=== PATIENT | female | born 1965 | race Caucasian/White ===

== ENCOUNTER → 2016-06-26 | Outpatient (CLI) | payer OTHER ==
--- NOTE | 2016-06-26 15:24 | MR ---
EXAMINATION TYPE: MR shoulder RT wo con DATE OF EXAM: 06/26/2016 3:14 PM COMPARISON: NONE HISTORY: Right shoulder pain TECHNIQUE: Multiplanar, multisequence imaging of the right shoulder is performed without contrast. FINDINGS: Rotator Cuff: There is increased signal involving the distal margin of the supraspinatus tendon. At t he insertion there is a 2 mm partial through thickness tear with no retraction. This involves the ant erior fibers. Small amount of fluid seen in the subacromial subdeltoid space. Does appear to be increased signal involving the distal margin of the infraspinatus tendon most sugge stive of tendinosis with no through thickness tear or retraction. Acromioclavicular Joint: Hypertrophic change of the AC joint results in impingement. Glenohumeral Joint: Joint space appears be fairly well preserved. No sizable joint effusion. Inferior glenohumeral ligament intact. Labrum: The labrum appears grossly intact given limitation of non-arthrogram study. Biceps Tendon: The long head of biceps is in normal location within bicipital groove. Small amount of fluid is seen surrounding the biceps tendon. Bone marrow signal: No focal abnormal marrow signal is appreciated. Small benign-appearing cyst invol ving the humeral head. IMPRESSION: 1. Supraspinatus tendinosis with a 2 mm partial through thickness tear involving the anterior fibers near the insertion with no retraction. # 2. Bicipital mild tendinosis. 3. Tendinosis distal margin infraspinatus tendon with no through thickness tear or retraction.
== END | disposition home or self-care (01) ==
LOC: RADMRIMAIN 14:34
PROVIDERS: ATTEND Psychiatry & Neurology Neurology
DX: M75.111 Incomplete rotator cuff tear or rupture of right shoulder, not specified as traumatic (principal); M67.813 Other specified disorders of tendon, right shoulder

== ENCOUNTER → 2018-03-10 | Outpatient (CLI) | payer OTHER ==
--- NOTE | 2018-03-10 18:27 | XR ---
EXAMINATION TYPE: XR chest 2V DATE OF EXAM: 03/10/2018 COMPARISON: None HISTORY: 52-year-old female with cough TECHNIQUE: Frontal and lateral views FINDINGS: The cardiomediastinal silhouette, aorta, and pulmonary vasculature are within normal limits. Some str pantera atelectasis in the mid and lower lungs. There is partial silhouetting of the right hemidiaphragm on the lateral view. Otherwise, no pleural effusion. IMPRESSION: Partial silhouetting of the posterior right hemidiaphragm on the lateral view could represent adjacen t right basilar atelectasis or early developing infiltrate. Clinically correlate.
--- NOTE | 2018-03-11 07:09 | CT ---
EXAMINATION TYPE: CT brain w con DATE OF EXAM: 03/10/2018 COMPARISON: None HISTORY: 52-year-old female cervicalgia, headache CT DLP: 1121 mGycm Automated exposure control for dose reduction was used. Technique: CT scan of the head is performed with IV Contrast, patient injected with 100 mL of Isovue 300. FINDINGS: There is no abnormal enhancing mass or midline shift identified. Dural venous sinuses are patent. Th e ventricles and sulci are within normal limits in size. Craniocervical junction appears within norm al limits. The globes are intact and the visualized sinuses are clear. IMPRESSION: No intracranial abnormality identified on contrast enhanced CT of the head.
== END | disposition home or self-care (01) ==
LOC: RADCTMAIN 14:27
PROVIDERS: ATTEND Psychiatry & Neurology Neurology
DX: R51 Headache (principal); R05 Cough; R06.00 Dyspnea, unspecified
CPT/HCPCS: 71046; 70460; Q9967

== ENCOUNTER → 2018-04-02 | Outpatient (CLI) | payer OTHER ==
--- NOTE | 2018-04-02 17:39 | CT ---
EXAMINATION TYPE: CT chest w con DATE OF EXAM: 04/02/2018 COMPARISON: Chest x-ray 03/10/2018 HISTORY: abnormal CXR CT DLP: 234.40 mGycm, Automated exposure control for dose reduction was used. CONTRAST: Performed injected with 100 mL of Isovue 300. TECHNIQUE: Axial images were obtained at 5 mm thick sections. Reconstructed images are reviewed on wishkicker computer in the coronal plane. FINDINGS: Portion of the thyroid visualized is normal. No suspicious lung nodules or focal infiltrates are present. Suspected posterior atelectasis has reso lved from the chest x-ray. Scattered blebs and bulla at the lung apices are present bilaterally yo tible COPD. No enlarged mediastinal or hilar adenopathy is evident. The ascending aorta diameter at the level o f the main pulmonary artery is 3.1 cm. The main pulmonary artery diameter at the bifurcation is 2.[address] sections are obtained through the upper abdomen. Abdomen is essentially unremarkable. IMPRESSIONS: 1. No acute pulmonary process. 2. Emphysematous blebs and bulla at the lung apices.
== END ==
LOC: RADCTMAIN 14:13
PROVIDERS: ATTEND Internal Medicine
DX: J43.9 Emphysema, unspecified (principal); Z88.0 Allergy status to penicillin
CPT/HCPCS: 71260; Q9967

== ENCOUNTER → 2018-07-05 | Outpatient (CLI) | payer OTHER ==
--- NOTE | 2018-07-05 20:37 | XR ---
EXAMINATION TYPE: XR shoulder limited 2 views LT, XR elbow limited 2 views LT DATE OF EXAM: 07/05/2018 COMPARISON: NONE HISTORY: 52-year-old female left elbow and shoulder pain and swelling FINDINGS: Left shoulder: Moderate degenerative joint space narrowing and marginal spurring at the AC joint. Subacromial space is preserved. No tendinous or bursal calcifications. No acute fracture, subluxation, or dislocation s een. Left elbow: There is asymmetric joint space narrowing along the medial aspect of the ulnar trochlear joint. Small bony spur at the medial condyle. There is an underlying elbow joint effusion. No acute fracture, sub luxation, or dislocation is seen. IMPRESSION: 1. Left shoulder: Moderate AC joint OA. No acute osseous abnormality seen. 2. Left elbow: Underlying elbow joint effusion. Findings could be reactive to the patient's ulnotroch lear joint OA or effusion could be secondary to an underlying occult injury. Further clinical correla tion recommended. Follow-up in 10-14 days to reassess.
== END | disposition home or self-care (01) ==
LOC: RADXRMAIN 10:03
PROVIDERS: ATTEND Internal Medicine
DX: M19.012 Primary osteoarthritis, left shoulder (principal); M25.422 Effusion, left elbow

== ENCOUNTER → 2018-11-17 | Outpatient (CLI) | payer OTHER ==
--- NOTE | 2018-11-17 17:55 | CT ---
EXAMINATION TYPE: CT soft tissue neck wo con DATE OF EXAM: 11/17/2018 COMPARISON: None HISTORY: Laryngeal polyps CT DLP: 331.8 mGycm CONTRAST: Patient injected with 0 mL of Isovue 300. TECHNIQUE: Axial images at 3 mm thick sections. Reconstructed images in the coronal plane and sagitt al plane are reviewed. FINDINGS: Limited CT sections are obtained the lung apices. The lung apices appear clear. There is a 1.0 cm lymph node in the precarinal space. The ascending thoracic aorta at the level of the main pul monary artery is 3.1 cm. The main pulmonary artery dictation is 2.4 cm. Portion of the thyroid visualized is normal. The subglottic airway is normal. Vocal cord level is sym metrical. Hypopharynx is unremarkable. No supraclavicular adenopathy is evident. Vascular structures appear unremarkable. Submandibular glan ds are normal. Small submandibular lymph nodes are present. Multiple anterior and posterior triangle lymph nodes are present. Enlarged lymphadenopathy is not evident. The prevertebral space is normal. P arapharyngeal spaces are normal. CT neck: The torus tubarius and fossa of Rosenmuller are normal. Woods Boss spaces are normal. Para nasal sinuses and mastoid air cells are clear. Parotid glands appear normal and symmetrical. Submandibular glands, are normal. No suspicious adenop athy is evident. Osseous structures are normal. IMPRESSIONS: 1. No suspicious discrete mass identified. Patient's reported vocal cord polyp is not identified.
--- NOTE | 2018-11-17 19:34 | US ---
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 Abnormal thyroid labs. TECHNIQUE: Multiple sonographic images of the thyroid gland are obtained. FINDINGS: GLAND SIZE: Right Lobe: 3.7 x 1.7 x 1.9 cm Overall Parenchyma: heterogenous Left Lobe: 3.9 x 1.7 x 1.4 cm Overall Parenchyma: heterogeneous Isthmus Thickness: 0.4 cm NODULES RIGHT: # of nodules measured on right: 0 LEFT: # of nodules measured on left: 0 ISTHMUS: # of nodules measured in the isthmus: 0 Bilateral neck scanned, no evidence of lymphadenopathy. IMPRESSION: Overall normal sized gland with heterogeneous parenchyma, possible chronic thyroiditis, hypothyroidis m, or goiter. No discrete nodules.
== END | disposition home or self-care (01) ==
LOC: RADCTMAIN 15:35
PROVIDERS: ATTEND Internal Medicine
DX: J38.1 Polyp of vocal cord and larynx (principal); R94.6 Abnormal results of thyroid function studies; Z88.0 Allergy status to penicillin
CPT/HCPCS: 70490; 76536

== ENCOUNTER → 2019-02-12 | Outpatient (CLI) | payer OTHER ==
--- NOTE | 2019-02-12 15:38 | US ---
EXAMINATION TYPE: US carotid duplex BILAT DATE OF EXAM: 02/12/2019 COMPARISON: NONE CLINICAL HISTORY: G45 Transient cerebral ischemic attacks and relate. Headaches, dizziness, TIA EXAM MEASUREMENTS: RIGHT: Peak Systolic Velocity (PSV) cm/sec ----- Right CCA: 79.1 ----- Right ICA: 81.0 ----- Right ECA: 79.1 ICA/CCA ratio: 1.0 RIGHT: End Diastole cm/sec ----- Right CCA: 27.3 ----- Right ICA: 35.6 ----- Right ECA: 17.6 LEFT: Peak Systolic Velocity (PSV) cm/sec ----- Left CCA: 82.6 ----- Left ICA: 97.6 ----- Left ECA: 72.2 ICA/CCA ratio: 1.2 LEFT: End Diastole cm/sec ----- Left CCA: 28.5 ----- Left ICA: 50.2 ----- Left ECA: 19.4 VERTEBRALS (direction of flow): Right Vertebral: Intermittent retrograde flow Left Vertebral: Antegrade Rhythm: Normal Mild plaque bilateral bifurcations. No evidence of increased velocities. Abnormal right vertebral art serafin flow IMPRESSION: 1. Mild degree of grayscale atheromatous plaquing with no sonographically evident hemodynamically sig nificant stenosis within either visualized carotid arterial system. 2. Abnormal flow within the right vertebral artery with diminutive caliber and reversal flow late in the cardiac cycle. CTA neck is recommended for further evaluation. Criteria for Assigning % of Stenosis / Diameter reduction (Estimation based on the indirect measurements of the internal carotid artery velocities (ICA PSV). 1. Normal (no stenosis)=ICA PSV < 125 cm/s: ratio < 2.0: ICA EDV<40 cm/s. 2. Less than 50% stenosis=ICA PSV < 125 cm/s: ratio < 2.0: ICA EDV<40 cm/s. 3. 50 to 69% stenosis=ICA PSV of 125 to 230 cm/s: ration 2.0 ? 4.0: ICA EDV 40-100 cm/s. 4. Greater than 70% stenosis to near occlusion= ICA PSV > 230 cm/s: ratio > 4.0: ICA EDV > 100 cm/s. 5. Near occlusion= ICA PSV velocities may be low or undetectable: variable ratio and ICA EDV. 6. Total occlusion=unable to detect flow.
== END | disposition home or self-care (01) ==
LOC: RADUSWWP 14:42
PROVIDERS: ATTEND Psychiatry & Neurology Neurology
DX: I65.23 Occlusion and stenosis of bilateral carotid arteries (principal); R93.89 Abnormal findings on diagnostic imaging of other specified body structures
CPT/HCPCS: 93880

== ENCOUNTER → 2019-04-15 | Outpatient (CLI) | payer OTHER ==
--- NOTE | 2019-04-15 12:07 | CT ---
EXAMINATION TYPE: CT angio head neck DATE OF EXAM: 04/15/2019 COMPARISON: CT brain 03/10/2018 HISTORY: 53-year-old female Dissection of vertebral artery TECHNIQUE: Contiguous axial scanning of the head and neck performed with IV Contrast, patient inject ed with 65 ml mL of Isovue 370. Coronal and sagittal MIP reconstructions were performed. 3-D reconstr uctions generated on a dedicated independent workstation. CT DLP: 284 mGycm Automated exposure control for dose reduction was used. FINDINGS: NECK: Prominent dependent atelectasis in the visualized upper lungs with underlying paraseptal emphysema. Conventional and vessel branching anatomy. There is moderate to severe focal narrowing at the proximal right subclavian artery, refer to axial i mage 97 and a diminutive right vertebral artery likely on a congenital basis. Both vertebral arteries appear patent throughout their course. Mild atherosclerotic change at the left carotid bifurcation. No significant common or internal caroti d artery stenosis on either side. HEAD: Again, dominant left vertebral artery. Both vertebral and basilar arteries are patent. Atherosclerotic calcifications within the right carotid siphon. It appears to be a moderate focal wilfrid nosis along the proximal portion of the cavernous segment of the right internal carotid artery, refer to thin slice axial image 115. Mild to moderate focal narrowing at the lacerum segment, axial image 122, and also mild stenoses scattered throughout the remainder of the right carotid siphon. Hypoplastic A1 segment right anterior cerebral artery. Anterior circulation is otherwise patent. No aneurysmal change is seen. IMPRESSION: NECK: 1. Moderate to severe focal stenosis proximal right subclavian artery (axial image 97). 2. Dominant left vertebral artery. 3. Mild atherosclerotic change at the left carotid bifurcation. No significant common or internal car otid artery stenosis within the neck. 4. Emphysematous change in the visualized upper lungs. HEAD: 1. Moderate atherosclerotic change within the right carotid siphon with segmental areas of mild steno ses throughout but with more moderate focal stenosis along the proximal portion of the cavernous segm ent and mild to moderate focal stenosis along the lacerum segment, right ICA. 2. Congenitally hypoplastic A1 segment right FAWN. 3. Again, dominant left vertebral artery. No large vessel intracranial arterial occlusion or aneurysm al change is seen.
== END | disposition home or self-care (01) ==
LOC: RADCTMAIN 08:59
PROVIDERS: ATTEND Psychiatry & Neurology Vascular Neurology
DX: I65.23 Occlusion and stenosis of bilateral carotid arteries (principal); I70.8 Atherosclerosis of other arteries; Q28.3 Other malformations of cerebral vessels; I77.74 Dissection of vertebral artery
CPT/HCPCS: 70496; 70498; Q9967

== ENCOUNTER 2020-03-08 15:06 | Inpatient (IN) | payer OTHER ==
[2020-03-08] MEDS ORDERED: PANTOPRAZOLE 40 MG/10 ML VIAL IVP STA (15:26)
[2020-03-08] MEDS ORDERED: ONDANSETRON 4 MG/2 ML VIAL IVP STA (15:26)
[2020-03-08] MEDS ORDERED: SODIUM CHLORIDE 0.9% 1,000 ML IV STA ×3 (15:26→17:27)
--- NOTE | 2020-03-08 15:35 | ED ---
GI Bleed HPI - General Chief complaint: GI Bleed Stated complaint: blood in stool Time Seen by Provider: 03/08/20 15:10 Source: patient, EMS Mode of arrival: EMS Limitations: no limitations - History of Present Illness Initial comments: This 54-year-old female presents with a complaint of possible GI bleeding. She states that the onset of symptoms was just this past evening, one day ago. She had multiple episodes of very black stools mixed with diarrhea. She denies any bright red blood per rectum. She also has been very nauseated and vomited mul tiple times stating that this was a very dark vomitus but there is no bright red blood. She also complains of severe low back pain with a history of chronic low back pain. She complains of bilateral lower abdominal cramping. She denies any fevers or chills. She states that at one time, she got up from the toilet, became very sweaty, and then passed out. She denies any injuries. She was able to make it back to the bed and laid down and her symptoms improved. She denies any previous known history of gastrointestinal bleeding. She denies any history of gastritis or peptic ulcer disease. She utilizes only very rare nonsteroidal anti-inflammatory medications. She does not drink alcohol. She presents via EMS hypotensive with a systolic blood pressure in the 70s. No other complaints or modifying factors. - Related Data Home Medications Medication Instructions Recorded Confirmed HYDROcodone/APAP 7.5-325MG [[place] 1 tab PO TID 03/08/20 03/08/20 7.5-325] Allergies Allergy/AdvReac Type Severity Reaction Status Date / Time Penicillins Allergy Nausea & Verified 03/08/20 17:35 Vomiting & Diarrhea,"passed out" Review of Systems ROS Statement: Those systems with pertinent positive or pertinent negative responses have been documented in the HPI. ROS Other: All systems not noted in ROS Statement are negative. Past Medical History Past Medical History: GERD/Reflux, Musculoskeletal Disorder Additional Past Medical History / Comment(s): "clicking and popping in neck area very painful,rt shoulder very painful" History of Any Multi-Drug Resistant Organisms: None Reported Past Surgical History: Orthopedic Surgery Additional Past Surgical History / Comment(s): lt elbow,,rt hand surgery Past Anesthesia/Blood Transfusion Reactions: Motion Sickness, Postoperative Nausea & Vomiting (PONV) Past Psychological History: No Psychological Hx Reported Smoking Status: Current some day smoker Past Alcohol Use History: Occasional Past Drug Use History: None Reported - Past Family History Father Family Medical History: Cancer Mother Additional Family Medical History / Comment(s): bone degenerating disease- multiple jt replacements General Exam - General Exam Comments Initial Comments: GENERAL: The patient is well nourished and well hydrated. VITAL SIGNS: Heart rate, blood pressure, respiratory rate reviewed as recorded in nurse's notes. EYES: Pupils are round and reactive. Extraocular movements are intact. No conjunctival / lid redness or swelling. ENT: No external evidence of injury, swelling, or ecchymosis. Airway is patent. Throat is clear. NECK: Nontender. No swelling or evidence of injury. No subcutaneous emphysema. Trachea is midline. No thyroid mass. HEART: Regular rate and rhythm. Good peripheral pulses. LUNGS/CHEST: Breath sounds clear and equal bilaterally. No rales, rhonchi, or wheezes. No ecchymosis, subcutaneous emphysema, or tenderness. ABDOMEN: Mild tenderness noted to bilateral lower abdomen. No palpable masses or organomegaly. No peritoneal signs. No abdominal wall swelling or ecchymosis. EXTREMITIES: No extremity tenderness. Normal muscle tone and function. Mild tenderness noted to the bilateral perilumbar musculature. NEUROLOGIC: Sensation is grossly intact. Cranial nerve exam reveals face is symmetrical, tongue is midline, speech is clear. SKIN: No abrasions or ecchymosis is noted. No induration or masses noted. PSYCHIATRIC: Alert and oriented. Appropriate behavior and judgment. Rectal exam: Good rectal tone noted, black stool identified. No bright red blood identified. No hemorrhoids. Limitations: no limitations Course Vital Signs 03/08/20 03/08/20 03/08/20 15:08 15:28 16:52 Temperature 98.2 F Pulse Rate 95 93 Respiratory 16 16 18 Rate Blood Pressure 97/69 118/59 85/55 O2 Sat by Pulse 100 98 99 Oximetry 03/08/20 17:53 Temperature Pulse Rate 87 Respiratory 16 Rate Blood Pressure 114/89 O2 Sat by Pulse 98 Oximetry Medical Decision Making - Medical Decision Making The patient was seen and examined. All diagnostics are reviewed. She receives Protonix 40 mg IV here and she also receives 1 L bolus of 0.9 normal saline. She receives Zofran 8 mg IV. Her blood pressure does improve with IV fluid administration. The EKG shows a normal sinus rhythm at a rate of 81. There is no acute ST-T wave changes identified. The LA interval is 162, QRS duration is 74, and the QTC intervals 453. Laboratory is reviewed and does show a hemoglobin low at 11 with previous being 14 one year ago. Her white blood cell count is elevated. Hemoccult is positive. The CO2 is decreased as well. The computed tomography scan of the abdomen and pelvis shows a 3 mm right ureteral stone with associated hydronephrosis. It also shows nephrolithiasis. There is some colonic wall thickening and possible narrowing and radiologist's's that this could be consistent with a colitis and recommends visualization/endoscopy. The patient seems symptomatically to have an upper GI bleed. She will be covered with antibiotics for the possibility of a colitis as well. She is given additional morphine for continued pain. She is given additional fluids. Her blood pressure does come up initially but then drops down to 87 systolic. The case is discussed with Dr. Tapia and he would like the patient to be admitted to the intensive care unit. Case is discussed with Dr. Blas and he is agreeable to admission to the ICU as well. GI and urology will be consulted. Approximat delmis 30 minutes critical care time is utilized and the treatment of the patient. - Lab Data Result diagrams: 03/08/20 15:31 03/08/20 15:31 Lab Results 03/08/20 03/08/20 03/08/20 Range/Units 15:10 15:20 15:31 WBC 16.2 H (3.8-10.6) k/uL RBC 3.56 L (3.80-5.40) m/uL Hgb 11.0 L (11.4-16.0) gm/dL Hct 33.1 L (34.0-46.0) % MCV 92.8 (80.0-100.0) fL MCH 30.9 (25.0-35.0) pg MCHC 33.2 (31.0-37.0) g/dL RDW 13.6 (11.5-15.5) % Plt Count 401 (150-450) k/uL MPV 7.9 Neutrophils % 61 % Lymphocytes % 31 % Monocytes % 5 % Eosinophils % 1 % Basophils % 1 % Neutrophils # 9.9 H (1.3-7.7) k/uL Lymphocytes # 5.0 H (1.0-4.8) k/uL Monocytes # 0.8 (0-1.0) k/uL Eosinophils # 0.1 (0-0.7) k/uL Basophils # 0.2 (0-0.2) k/uL PT (9.0-12.0) sec INR (<1.2) APTT (22.0-30.0) sec Sodium (137-145) mmol/L Potassium (3.5-5.1) mmol/L Chloride (98-107) mmol/L Carbon Dioxide (22-30) mmol/L Anion Gap mmol/L BUN (7-17) mg/dL Creatinine (0.52-1.04) mg/dL Est GFR (CKD-EPI)AfAm (>60 ml/min/1.73 sqM) Est GFR (CKD-EPI)NonAf (>60 ml/min/1.73 sqM) Glucose (74-99) mg/dL Plasma Lactic Acid Dorian (0.7-2.0) mmol/L Calcium (8.4-10.2) mg/dL Total Bilirubin (0.2-1.3) mg/dL AST (14-36) U/L ALT (4-34) U/L Alkaline Phosphatase (38-126) U/L Total Protein (6.3-8.2) g/dL Albumin (3.5-5.0) g/dL Lipase (23-300) U/L Stool Occult Blood (Negative) Blood Type O Positive Blood Type Confirm O Positive Blood Type Recheck No Previous Record Bld Type Recheck Status CABO Indicated Antibody Screen NEGATIVE Spec Expiration Date 03/11/2020 - 233003/08/20 03/08/20 03/08/20 Range/Units 15:31 15:31 15:31 WBC (3.8-10.6) k/uL RBC (3.80-5.40) m/uL Hgb (11.4-16.0) gm/dL Hct (34.0-46.0) % MCV (80.0-100.0) fL MCH (25.0-35.0) pg MCHC (31.0-37.0) g/dL RDW (11.5-15.5) % Plt Count (150-450) k/uL MPV Neutrophils % % Lymphocytes % % Monocytes % % Eosinophils % % Basophils % % Neutrophils # (1.3-7.7) k/uL Lymphocytes # (1.0-4.8) k/uL Monocytes # (0-1.0) k/uL Eosinophils # (0-0.7) k/uL Basophils # (0-0.2) k/uL PT 10.5 (9.0-12.0) sec INR 1.0 (<1.2) APTT 22.4 (22.0-30.0) sec Sodium 136 L (137-145) mmol/L Potassium 4.0 (3.5-5.1) mmol/L Chloride 111 H (98-107) mmol/L Carbon Dioxide 17 L (22-30) mmol/L Anion Gap 8 mmol/L BUN 52 H (7-17) mg/dL Creatinine 0.72 (0.52-1.04) mg/dL Est GFR (CKD-EPI)AfAm >90 (>60 ml/min/1.73 sqM) Est GFR (CKD-EPI)NonAf >90 (>60 ml/min/1.73 sqM) Glucose 112 H (74-99) mg/dL Plasma Lactic Acid Dorian (0.7-2.0) mmol/L Calcium 9.5 (8.4-10.2) mg/dL Total Bilirubin 0.3 (0.2-1.3) mg/dL AST 18 (14-36) U/L ALT 14 (4-34) U/L Alkaline Phosphatase 48 (38-126) U/L Total Protein 6.3 (6.3-8.2) g/dL Albumin 3.6 (3.5-5.0) g/dL Lipase 16 L (23-300) U/L Stool Occult Blood Positive H (Negative) Blood Type Blood Type Confirm Blood Type Recheck Bld Type Recheck Status Antibody Screen Spec Expiration Date 03/08/20 Range/Units 15:31 WBC (3.8-10.6) k/uL RBC (3.80-5.40) m/uL Hgb (11.4-16.0) gm/dL Hct (34.0-46.0) % MCV (80.0-100.0) fL MCH (25.0-35.0) pg MCHC (31.0-37.0) g/dL RDW (11.5-15.5) % Plt Count (150-450) k/uL MPV Neutrophils % % Lymphocytes % % Monocytes % % Eosinophils % % Basophils % % Neutrophils # (1.3-7.7) k/uL Lymphocytes # (1.0-4.8) k/uL Monocytes # (0-1.0) k/uL Eosinophils # (0-0.7) k/uL Basophils # (0-0.2) k/uL PT (9.0-12.0) sec INR (<1.2) APTT (22.0-30.0) sec Sodium (137-145) mmol/L Potassium (3.5-5.1) mmol/L Chloride (98-107) mmol/L Carbon Dioxide (22-30) mmol/L Anion Gap mmol/L BUN (7-17) mg/dL Creatinine (0.52-1.04) mg/dL Est GFR (CKD-EPI)AfAm (>60 ml/min/1.73 sqM) Est GFR (CKD-EPI)NonAf (>60 ml/min/1.73 sqM) Glucose (74-99) mg/dL Plasma Lactic Acid Dorian 1.3 (0.7-2.0) mmol/L Calcium (8.4-10.2) mg/dL Total Bilirubin (0.2-1.3) mg/dL AST (14-36) U/L ALT (4-34) U/L Alkaline Phosphatase (38-126) U/L Total Protein (6.3-8.2) g/dL Albumin (3.5-5.0) g/dL Lipase (23-300) U/L Stool Occult Blood (Negative) Blood Type Blood Type Confirm Blood Type Recheck Bld Type Recheck Status Antibody Screen Spec Expiration Date Disposition Clinical Impression: Gastrointestinal bleeding, upper, Syncope, Hypotension, Acute low back pain, Acute abdominal pain, Anemia, Leukocytosis, Ureteral stone, Acidosis, Intractable pain, Hydronephrosis, Colitis Disposition: ADMITTED IP TO THIS [facility] Condition: Fair Time of Disposition: 18:09 Decision Date: 03/08/20 Decision Time: 18:09
[2020-03-08 16:01] LABS: ALT 14 U/L (4-34); AST 18 U/L (14-36); African American GFR (CKD) >90 (>60 ml/min/1.73 sqM); Albumin 3.6 g/dL (3.5-5.0); Alkaline Phosphatase 48 U/L (38-126); Anion Gap 8 mmol/L; Blood Urea Nitrogen 52 mg/dL (7-17); Calcium 9.5 mg/dL (8.4-10.2); Carbon Dioxide 17 mmol/L (22-30); Chloride 111 mmol/L (98-107); Glucose 112 mg/dL (74-99); Lipase 16 U/L (23-300); Non-African American GFR(CKD) >90 (>60 ml/min/1.73 sqM); Sodium 136 mmol/L (137-145); Total Bilirubin 0.3 mg/dL (0.2-1.3); Total Protein 6.3 g/dL (6.3-8.2)
[2020-03-08] MEDS ORDERED: MORPHINE SULFATE 2 MG/ML SYRINGE IVP STA (16:01)
[2020-03-08 16:23] LABS: Basophils # (A) 0.2 k/uL (0-0.2); Basophils % (A) 1 %; Eosinophils # (A) 0.1 k/uL (0-0.7); Eosinophils % (A) 1 %; HCT 33.1 % (34.0-46.0); Lymphocytes % (A) 31 %; MCH 30.9 pg (25.0-35.0); MCHC 33.2 g/dL (31.0-37.0); MCV 92.8 fL (80.0-100.0); Mean Platelet Volume 7.9; Monocytes # (A) 0.8 k/uL (0-1.0); Monocytes % (A) 5 %; Neutrophils # (A) 9.9 k/uL (1.3-7.7); Neutrophils % (A) 61 %; Platelet Count 401 k/uL (150-450); RBC 3.56 m/uL (3.80-5.40); RDW 13.6 % (11.5-15.5); WBC 16.2 k/uL (3.8-10.6)
[2020-03-08 16:32] LABS: Partial Thromboplastin Time 22.4 sec (22.0-30.0); Prothrombin Time 10.5 sec (9.0-12.0)
--- NOTE | 2020-03-08 16:52 | CT ---
EXAMINATION TYPE: CT abdomen pelvis w con DATE OF EXAM: 03/08/2020 COMPARISON: None available. HISTORY: generalized abdominal pain, CT DLP: 721.3 mGycm Automated exposure control for dose reduction was used. TECHNIQUE: Helical acquisition of images was performed from the lung bases through the pelvis. CONTRAST: Performed without Oral Contrast and with IV Contrast, patient injected with 100 mL of Isovue 300. FINDINGS: LUNG BASES: Mild bibasilar atelectasis. LIVER/GB: No significant abnormality is appreciated. PANCREAS: No significant abnormality is seen. SPLEEN: No significant abnormality is seen. ADRENALS: No significant abnormality is seen. KIDNEYS: 3 mm calculus in the right proximal ureter with moderate hydronephrosis. Additional nonobstr ucting 2 mm right renal calculus. A few 1-2 benign-appearing bilateral renal cysts, measuring up to 7 mm. Left renal pelvic ectasia without overt hydronephrosis. FREE AIR: No free air is visualized. RETROPERITONEAL ADENOPATHY: None visualized REPRODUCTIVE ORGANS: No significant abnormality is seen URINARY BLADDER: No significant abnormality is seen. PELVIC ADENOPATHY: None visualized. OSSEOUS STRUCTURES: No significant abnormality is seen. BOWEL: Diffuse mild wall thickening of the colon. Also nonspecific focal narrowing involving the pro ximal sigmoid colon. No bowel obstruction, free air or fluid. OTHER: Moderate to advanced atherosclerotic disease. IMPRESSION: 3 MM OBSTRUCTING RIGHT PROXIMAL URETER CALCULUS WITH MODERATE HYDRONEPHROSIS. ADDITIONAL NONOBSTRUCTING RIGHT RENAL CALCULUS. DIFFUSE MILD COLONIC WALL THICKENING, MAY REPRESENT COLITIS IN THE APPROPRIATE CLINICAL SETTING. ALSO NONSPECIFIC FOCAL NARROWING INVOLVING THE PROXIMAL SIGMOID COLON. Recommend colonoscopy correlat ion to exclude underlying etiology.
[2020-03-08] MEDS ORDERED: MORPHINE SULFATE 4 MG/ML SYRINGE IV STA (17:27)
[2020-03-08] MEDS ORDERED: NALOXONE 0.4 MG/ML 1 ML VIAL IV PRN (18:09)
[2020-03-08] MEDS ORDERED: LEVOFLOXACIN 750MG-D5W PMX 750 MG in DEXTROSE/WATER 1 150ML.BAG IVPB STA (18:17)
[2020-03-08] MEDS ORDERED: metroNIDAZOLE-NS PMX 500 MG in SALINE 1 100ML.BAG IVPB STA (18:18)
[2020-03-08 20:07] LABS: Glucose,Whole Blood 93 mg/dL (75-99)
[2020-03-08] MEDS: METOCLOPRAMIDE 5 MG/ML 2 ML VIAL IVP PRN (20:35)
[2020-03-08] MEDS: MORPHINE SULFATE 4 MG/ML SYRINGE IV PRN ×2 (20:35→23:39)
[2020-03-08] MEDS: DOCUSATE 100 MG CAP PO SCH (22:08)
[2020-03-08] MEDS ORDERED: SODIUM CHLORIDE 0.9% 1,000 ML IV ONE (22:08)
[2020-03-08] MEDS: PANTOPRAZOLE 40 MG/10 ML VIAL IV SCH (22:12)
[2020-03-09] MEDS: MORPHINE SULFATE 2 MG/ML SYRINGE IVP PRN ×3 (02:27→09:23)
[2020-03-09 04:45] LABS: Basophils % (A) 0 %; Eosinophils # (A) 0.1 k/uL (0-0.7); Eosinophils % (A) 1 %; Lymphocytes # (A) 4.7 k/uL (1.0-4.8); Lymphocytes % (A) 49 %; MCH 30.3 pg (25.0-35.0); MCHC 32.2 g/dL (31.0-37.0); MCV 94.1 fL (80.0-100.0); Mean Platelet Volume 7.8; Monocytes # (A) 0.4 k/uL (0-1.0); Monocytes % (A) 4 %; Neutrophils # (A) 4.1 k/uL (1.3-7.7); Neutrophils % (A) 43 %; Platelet Count 290 k/uL (150-450); RBC 2.34 m/uL (3.80-5.40); WBC 9.5 k/uL (3.8-10.6)
[2020-03-09 04:48] LABS: HGB 7.1 gm/dL (11.4-16.0)
[2020-03-09 04:49] LABS: African American GFR (CKD) >90 (>60 ml/min/1.73 sqM); Anion Gap 2 mmol/L; Blood Urea Nitrogen 24 mg/dL (7-17); Calcium 8.2 mg/dL (8.4-10.2); Carbon Dioxide 16 mmol/L (22-30); Chloride 119 mmol/L (98-107); Glucose 90 mg/dL (74-99); Non-African American GFR(CKD) >90 (>60 ml/min/1.73 sqM); Potassium 3.5 mmol/L (3.5-5.1); Sodium 137 mmol/L (137-145)
[2020-03-09] MEDS ORDERED: Potassium Replacement Protocol 1 EACH MISC MISCELLANE PRN (04:56)
[2020-03-09] MEDS: POTASSIUM CHLORIDE 10 MEQ in WATER FOR INJECTION 1 100ML.BAG IVPB SCH ×4 (05:00→09:26)
[2020-03-09] MEDS: MORPHINE SULFATE 4 MG/ML SYRINGE IV PRN ×6 (07:00→22:51)
[2020-03-09] MEDS: PANTOPRAZOLE 40 MG/10 ML VIAL IV SCH ×2 (09:23→20:49)
[2020-03-09] MEDS: DOCUSATE 100 MG CAP PO SCH ×2 (09:23→20:49)
[2020-03-09] MEDS: metroNIDAZOLE-NS PMX 500 MG in SALINE 1 100ML.BAG IVPB SCH ×3 (09:26→22:47)
[2020-03-09] MEDS: SODIUM CHLORIDE 0.9% 1,000 ML IV SCH ×2 (09:27→18:17)
--- NOTE | 2020-03-09 10:08 | P.CNPUL ---
History of Present Illness Consult date: 03/09/20 Requesting physician: Rick Montalvo Chief complaint: GI bleed, back pain. History of present illness: 54-year-old female who sees Dr. Sewell as a primary. The patient comes in with blood in her stool. She states that for the last day or 2, she's noticed black tarry stools. She's also had melanotic stools and burgundy stools. In addition, she complains of back pain. She has been complaining of nausea and vomiting as well as some abdominal cramping, and low back pain as mentioned above. She denies any fever or chills. Her only major medical problem is chronic back and neck and shoulder pain for which she takes Keller. She's never had any issues with kidney stone or gastrointestinal bleeding. She drinks alcohol rarely, and smokes occasionally. When she presented to the emergency room, she was hypotensive, with blood pressures in the 70s. She received quite a bit of fluid in the emergency room. Her hemoglobin dropped from 11.0 to 7.1. Apparently a year ago, her hemoglobin was 14. Both gastroenterology, and urology were consulted. Currently, she is not receiving any supplemental oxygen. She's getting saline at 100 mL an hour. I asked the nurse to get a urinalysis on this patient. Review of Systems REVIEW OF SYSTEMS: CONSTITUTIONAL: [Negative.] NEUROLOGIC: [ Negative.] HEENT: [ Negative.] CARDIAC: [Negative.] PULMONARY: [Negative.] GI: Melanotic stools, maroon stools. : Back pain. RHEUMATOLOGIC: [ Negative.] IMMUNOLOGIC: [ Negative.] ENDOCRINE: [Negative. ] DERMATOLOGIC: [Negative.] Past Medical History Past Medical History: GERD/Reflux, Musculoskeletal Disorder Additional Past Medical History / Comment(s): "clicking and popping in neck area very painful,rt shoulder very painful" History of Any Multi-Drug Resistant Organisms: None Reported Past Surgical History: Orthopedic Surgery Additional Past Surgical History / Comment(s): lt elbow,,rt hand surgery Past Anesthesia/Blood Transfusion Reactions: Motion Sickness, Postoperative Nausea & Vomiting (PONV) Past Psychological History: No Psychological Hx Reported Smoking Status: Current some day smoker Past Alcohol Use History: Occasional Additional Past Alcohol Use History / Comment(s): started smoking at age [age] Past Drug Use History: None Reported - Past Family History Father Family Medical History: Cancer Additional Family Medical History / Comment(s): lung CA Mother Additional Family Medical History / Comment(s): bone degenerating disease- multiple jt replacements Medications and Allergies Home Medications Medication Instructions Recorded Confirmed Type HYDROcodone/APAP 7.5-325MG [[place] 1 tab PO TID 03/08/20 03/08/20 History 7.5-325] Allergies Allergy/AdvReac Type Severity Reaction Status Date / Time Penicillins Allergy Nausea & Verified 03/08/20 17:35 Vomiting & Diarrhea,"passed out" Physical Exam Osteopathic Statement: *. No significant issues noted on an osteopathic structural exam other than those noted in the History and Physical/Consult. Vitals: Vital Signs Temp Pulse Resp BP Pulse Ox 03/09/20 07:00 80 15 116/79 97 03/09/20 06:00 84 18 121/64 99 03/09/20 05:30 82 15 96 03/09/20 05:00 78 17 116/72 96 03/09/20 04:30 74 19 117/71 97 03/09/20 04:00 98 F 75 20 109/61 96 03/09/20 03:30 76 16 122/74 95 03/09/20 03:00 85 17 114/66 97 03/09/20 02:30 79 16 102/57 99 03/09/20 02:00 87 20 108/65 98 03/09/20 01:30 81 19 116/69 96 03/09/20 01:00 78 17 114/71 98 03/09/20 00:30 79 18 111/62 96 03/09/20 00:00 97.9 F 80 15 109/85 95 03/08/20 23:30 86 18 90/71 99 03/08/20 23:00 80 16 98/67 95 03/08/20 22:30 70 18 78/59 98 03/08/20 22:15 104 H 19 78/59 89 L 03/08/20 22:00 74 18 64/34 96 03/08/20 21:45 74 15 79/54 94 L 03/08/20 21:30 79 16 87/50 99 03/08/20 21:15 73 15 93/68 96 03/08/20 21:00 63 17 87/67 93 L 03/08/20 20:45 68 15 90/63 96 03/08/20 20:30 61 18 94/69 98 03/08/20 20:15 98 F 84 19 90/58 99 03/08/20 20:00 98.0 F 71 16 105/55 99 03/08/20 17:53 87 16 114/89 98 03/08/20 16:52 18 85/55 99 03/08/20 15:28 93 16 118/59 98 03/08/20 15:08 98.2 F 95 16 97/69 100 Intake and Output 03/08/20 03/09/20 03/09/20 22:59 06:59 14:59 Intake Total 2300 1700 100 Output Total 500 2150 0 Balance 1800 -450 100 Intake: IV 300 1700 100 .9 300 700 100 Sodium Chloride 0.9% 1, 1000 000 ml @ 999 mls/hr IV . Q1H1M STA Rx#:[id number] Amount of Fluid Infused ( 2000 ml) Output: Urine 500 2150 0 Other: Voiding Method Bedpan Bedpan Weight 65.771 kg 66.5 kg No acute distress, oriented 3. The patient is not requiring any supplemental oxygen. HEENT examination is grossly unremarkable. Mucous membranes are moist. No oral lesions. Neck supple. Full range of motion. No adenopathy thyromegaly or neck vein distention. Cardiovascular examination reveals regular rhythm rate. S1-S2 normal. No S3 or S4. No discernible murmur noted. Lungs reveal clear breath sounds. Her sounds are equal bilaterally. No adventitious lung sounds including wheezes rhonchi or crackles. Right flank pain on percussion. Abdomen soft bowel sounds are heard. No masses or tenderness. Extremities are intact. No cyanosis clubbing or edema. Skin is without rash or lesion. Neurologic examination is brief but nonfocal. Results - Laboratory Findings CBC and BMP: 03/09/20 04:16 03/09/20 04:16 PT/INR, D-dimer PT 10.5 sec (9.0-12.0) 03/08/20 15:31 INR 1.0 (<1.2) 03/08/20 15:31 Abnormal lab findings: Abnormal Labs 03/08/20 03/08/20 03/08/20 15:31 15:31 15:31 WBC 16.2 H RBC 3.56 L Hgb 11.0 L Hct 33.1 L Neutrophils # 9.9 H Lymphocytes # 5.0 H Sodium 136 L Chloride 111 H Carbon Dioxide 17 L BUN 52 H Glucose 112 H Calcium Lipase 16 L Stool Occult Blood Positive H 03/09/20 03/09/20 04:16 04:16 WBC RBC 2.34 L Hgb 7.1 L D Hct 22.0 L Neutrophils # Lymphocytes # Sodium Chloride 119 H Carbon Dioxide 16 L BUN 24 H Glucose Calcium 8.2 L Lipase Stool Occult Blood Assessment and Plan Assessment: Acute gastrointestinal bleed, with resultant anemia. 3 mm obstructing right proximal ureter stone with moderate hydronephrosis. Diffuse colonic wall thickening, potentially consistent with colitis, possibly explaining the patient's gastrointestinal bleeding. Chronic back And shoulder pain, for which the patient uses Keller. Hyperchloremic non-anion gap metabolic acidosis, most likely secondary to significant saline administration. Plan: Plan dated 03/09/2020. Currently, the patient is stable. Her blood pressure and respiratory status are both stable. The patient will be seen by urology, and also by gastroenterology. The patient does not smoke or drink excessively. She has never had gastrointestinal bleeding like this. She does have right flank tenderness, likely consistent with her 3 mm kidney stone. Additional recommendations and suggestions are forthcoming. Prognosis is guarded. Time with Patient: Greater than 30
--- NOTE | 2020-03-09 10:39 | P.HPIM ---
History of Present Illness This is a pleasant 54 years old female with past medical history of GERD and musculoskeletal disorder. She smokes cigarettes 1-2 cigarettes occasionally. She is a patient of Dr. Melendez. She presents mainly because of low back pain which started Saturday about 3 days ago, 2 days ago she woke up with pain more severe and more to the right side and she had difficulty walking because of the pain. And then she started having black stool associated with sweating for 2 hours associated with dizziness and she got concerned and decided to come to emergency room. She denies chest pain or dyspnea, no nausea vomiting, no fresh blood per stool, no diarrhea. She denies dysuria. No fever. She smokes few cigarettes occasionally. No alcohol or illicit drugs. She denies using NSAIDs, she said she takes [place] 7.5 but not clinically On admission patient was hypotensive with blood pressure 85/55 at certain point. Currently Vitas looks stable with blood pressure 116,/79 Labs reviewed showing the patency 9.5K, hemoglobin dropped to 11 down to 7.1. INR is normal 1.0, alk phos and creatinine normal. Liver enzymes not elevated. Hemoccult test of the stool is positive. EKG showed normal sinus rhythm at [address]-T changes CT of the abdomen and pelvis with contrast showing 3 mm right ureter calculus with hydronephrosis. Diffuse mild colonic wall thickening, suspicious for colitis with focal narrowing in the proximal sigmoid colon narrowing The emergency room patient received levofloxacin and Flagyl and received pain medications, Zofran, Protonix and IV fluids, about 5 L, patient currently kept on 100 mL per hour Review of Systems CONSTITUTIONAL: No fever, no malaise, no fatigue. HEENT: No recent visual problems or hearing problems. Denied any sore throat. CARDIOVASCULAR: No orthopnea, PND, no palpitations, no syncope. PULMONARY: No shortness of breath, no cough, no hemoptysis. GASTROINTESTINAL: No diarrhea, no nausea, no vomiting. Normoactive bowel sounds. NEUROLOGICAL: No headaches, no weakness, no numbness. HEMATOLOGICAL: Denies any bleeding or petechiae. GENITOURINARY: Denies any burning micturition, frequency, or urgency. MUSCULOSKELETAL/RHEUMATOLOGICAL: Denies any joint pain, swelling, or any muscle pain. ENDOCRINE: Denies any polyuria or polydipsia. Past Medical History Past Medical History: GERD/Reflux, Musculoskeletal Disorder Additional Past Medical History / Comment(s): "clicking and popping in neck area very painful,rt shoulder very painful" History of Any Multi-Drug Resistant Organisms: None Reported Past Surgical History: Orthopedic Surgery Additional Past Surgical History / Comment(s): lt elbow,,rt hand surgery Past Anesthesia/Blood Transfusion Reactions: Motion Sickness, Postoperative Nausea & Vomiting (PONV) Past Psychological History: No Psychological Hx Reported Smoking Status: Current some day smoker Past Alcohol Use History: Occasional Additional Past Alcohol Use History / Comment(s): started smoking at age [age] Past Drug Use History: None Reported - Past Family History Father Family Medical History: Cancer Additional Family Medical History / Comment(s): lung CA Mother Additional Family Medical History / Comment(s): bone degenerating disease- multiple jt replacements Medications and Allergies Home Medications Medication Instructions Recorded Confirmed Type HYDROcodone/APAP 7.5-325MG [[place] 1 tab PO TID 03/08/20 03/08/20 History 7.5-325] Allergies Allergy/AdvReac Type Severity Reaction Status Date / Time Penicillins Allergy Nausea & Verified 03/08/20 17:35 Vomiting & Diarrhea,"passed out" Physical Exam Vitals: Vital Signs Temp Pulse Resp BP Pulse Ox 03/09/20 07:00 80 15 116/79 97 03/09/20 06:00 84 18 121/64 99 03/09/20 05:30 82 15 96 03/09/20 05:00 78 17 116/72 96 03/09/20 04:30 74 19 117/71 97 03/09/20 04:00 98 F 75 20 109/61 96 03/09/20 03:30 76 16 122/74 95 03/09/20 03:00 85 17 114/66 97 03/09/20 02:30 79 16 102/57 99 03/09/20 02:00 87 20 108/65 98 03/09/20 01:30 81 19 116/69 96 03/09/20 01:00 78 17 114/71 98 03/09/20 00:30 79 18 111/62 96 03/09/20 00:00 97.9 F 80 15 109/85 95 03/08/20 23:30 86 18 90/71 99 03/08/20 23:00 80 16 98/67 95 03/08/20 22:30 70 18 78/59 98 03/08/20 22:15 104 H 19 78/59 89 L 03/08/20 22:00 74 18 64/34 96 03/08/20 21:45 74 15 79/54 94 L 03/08/20 21:30 79 16 87/50 99 03/08/20 21:15 73 15 93/68 96 03/08/20 21:00 63 17 87/67 93 L 03/08/20 20:45 68 15 90/63 96 03/08/20 20:30 61 18 94/69 98 03/08/20 20:15 98 F 84 19 90/58 99 03/08/20 20:00 98.0 F 71 16 105/55 99 03/08/20 17:53 87 16 114/89 98 03/08/20 16:52 18 85/55 99 03/08/20 15:28 93 16 118/59 98 03/08/20 15:08 98.2 F 95 16 97/69 100 Intake and Output 03/08/20 03/09/20 03/09/20 22:59 06:59 14:59 Intake Total 2300 1700 100 Output Total 500 2150 0 Balance 1800 -450 100 Intake: IV 300 1700 100 .9 300 700 100 Sodium Chloride 0.9% 1, 1000 000 ml @ 999 mls/hr IV . Q1H1M STA Rx#:[id number] Amount of Fluid Infused ( 2000 ml) Output: Urine 500 2150 0 Other: Voiding Method Bedpan Bedpan Weight 65.771 kg 66.5 kg GENERAL: The patient is alert and oriented x3, not in any acute distress. Well developed, well nourished. HEENT: Pupils are round and equally reacting to light. EOMI. No scleral icterus. No conjunctival pallor. Normocephalic, atraumatic. No pharyngeal erythema. No th yromegaly. CARDIOVASCULAR: S1 and S2 present. No murmurs, rubs, or gallops. PULMONARY: Chest is clear to auscultation, no wheezing or crackles. ABDOMEN: Soft, nontender, nondistended, normoactive bowel sounds. No palpable organomegaly. -MUSCULOSKELETAL: No joint swelling or deformity. Right costovertebral angle tenderness EXTREMITIES: No cyanosis, clubbing, or pedal edema. NEUROLOGICAL: Gross neurological examination did not reveal any focal deficits. SKIN: No rashes. No petechiae Results CBC & Chem 7: 03/09/20 04:16 03/09/20 04:16 Labs: Abnormal Lab Results - Last 24 Hours (Table) 03/08/20 03/08/20 03/08/20 Range/Units 15:31 15:31 15:31 WBC 16.2 H (3.8-10.6) k/uL RBC 3.56 L (3.80-5.40) m/uL Hgb 11.0 L (11.4-16.0) gm/dL Hct 33.1 L (34.0-46.0) % Neutrophils # 9.9 H (1.3-7.7) k/uL Lymphocytes # 5.0 H (1.0-4.8) k/uL Sodium 136 L (137-145) mmol/L Chloride 111 H (98-107) mmol/L Carbon Dioxide 17 L (22-30) mmol/L BUN 52 H (7-17) mg/dL Glucose 112 H (74-99) mg/dL Calcium (8.4-10.2) mg/dL Lipase 16 L (23-300) U/L Stool Occult Blood Positive H (Negative) 03/09/20 03/09/20 Range/Units 04:16 04:16 WBC (3.8-10.6) k/uL RBC 2.34 L (3.80-5.40) m/uL Hgb 7.1 L D (11.4-16.0) gm/dL Hct 22.0 L (34.0-46.0) % Neutrophils # (1.3-7.7) k/uL Lymphocytes # (1.0-4.8) k/uL Sodium (137-145) mmol/L Chloride 119 H (98-107) mmol/L Carbon Dioxide 16 L (22-30) mmol/L BUN 24 H (7-17) mg/dL Glucose (74-99) mg/dL Calcium 8.2 L (8.4-10.2) mg/dL Lipase (23-300) U/L Stool Occult Blood (Negative) Thrombosis Risk Factor Assmnt - Choose All That Apply Any of the Below Risk Factors Present?: Yes Each Factor Represents 1 point: Age 41-60 years Other Risk Factors: No Other congenital or acquired thrombophilia - If yes, enter type in comment: No Thrombosis Risk Factor Assessment Total Risk Factor Score: 1 Thrombosis Risk Factor Assessment Level: Low Risk Assessment and Plan Assessment: Acute GI bleed Acute blood loss anemia Acute colitis, with CT of the abdomen and pelvis showing possible mild colitis with proximal sigmoid colon narrowing Right ureteral calculus, 3 mm with moderate right hydronephrosis. History of GERD Nicotine abuse Plan: This is a pleasant 54 years old female presents with possible junk believe, colitis and right hydronephrosis secondary to stone. Continue with IV hydration, continue with Protonix. Hold NSAIDs and blood thinners. Monitor hemoglobin and transfuse as needed. Monitor hemoglobin. Stool studies and C. diff. GI consult. Also critical care team consult. will consult urology for recurrent ureteral stone and hydronephrosis . We'll check urine analysis Labs and medication were reviewed.. Continue same treatment. Continue with symptomatic treatment. Resume home medication. Monitor lytes and vitals. DVT and GI prophylaxis. Further recommendations depends on the clinical course of the patient DVT prophylaxis: Subcutaneous heparin GI Prophylaxis: Ppi PT/OT: Pending Prognosis is guarded
[2020-03-09 10:57] VITALS: BMI 24.3
[2020-03-09 12:55] LABS: Appearance,Urine Clear (Clear); Bilirubin,Urine Negative (Negative); Blood,Urine Negative (Negative); Color,Urine Colorless; Glucose,Urine (UA) Negative (Negative); Ketones,Urine Negative (Negative); Leukocyte Esterase,Urine Negative (Negative); Nitrite,Urine Negative (Negative); PH, Urine 5.5 (5.0-8.0); Protein,Urine Negative (Negative); Specific Gravity,Urine 1.006 (1.001-1.035); Urobilinogen,Urine <2.0 mg/dL (<2.0)
--- NOTE | 2020-03-09 14:47 | P.GSCN ---
History of Present Illness Consult date: 03/09/20 Reason for Consult: Right-sided ureteral stone History of present illness: This is 54-year-old female that presented to the ED with a GI bleed, she is also been complaining of right-sided flank pain. She underwent a CAT scan that demonstrated 3 mm right proximal stone with hydronephrosis. There was an additional nonobstructing stone. Her pain has been associated with nausea but denies any vomiting. Denies any dysuria or gross hematuria. No previous history of stones, or family history of stones. She is currently scheduled to undergo endoscopy tomorrow for her GI bleed, she still complaining of flank pain, but has improved. Review of Systems - Constitutional Denies fever, Denies weight loss - Cardiovascular Denies chest pain, Denies shortness of breath - Respiratory Denies cough, Denies 7 - Gastrointestinal Reports change in bowel habits, Reports hematochezia, Reports nausea - Genitourinary Genitourinary: Reports flank pain, Denies dysuria - Neurological Denies headaches, Denies syncope Past Medical History Past Medical History: GERD/Reflux, Musculoskeletal Disorder Additional Past Medical History / Comment(s): "clicking and popping in neck area very painful,rt shoulder very painful" History of Any Multi-Drug Resistant Organisms: None Reported Past Surgical History: Orthopedic Surgery Additional Past Surgical History / Comment(s): lt elbow,,rt hand surgery Past Anesthesia/Blood Transfusion Reactions: Motion Sickness, Postoperative Nausea & Vomiting (PONV) Past Psychological History: No Psychological Hx Reported Smoking Status: Current some day smoker Past Alcohol Use History: Occasional Additional Past Alcohol Use History / Comment(s): started smoking at age [age] Past Drug Use History: None Reported - Past Family History Father Family Medical History: Cancer Additional Family Medical History / Comment(s): lung CA Mother Additional Family Medical History / Comment(s): bone degenerating disease-mul tiple jt replacements Medications and Allergies Home Medications Medication Instructions Recorded Confirmed Type HYDROcodone/APAP 7.5-325MG [[place] 1 tab PO TID 03/08/20 03/08/20 History 7.5-325] Allergies Allergy/AdvReac Type Severity Reaction Status Date / Time Penicillins Allergy Nausea & Verified 03/08/20 17:35 Vomiting & Diarrhea,"passed out" Surgical - Exam Vital Signs Temp Pulse Resp BP Pulse Ox 98.2 F 95 16 97/69 100 03/08/20 15:08 03/08/20 15:08 03/08/20 15:08 03/08/20 15:08 03/08/20 15:08 - General well developed, well nourished, no distress, moderate pain - Eyes PERRL, normal ocular movement - ENT normal nares, normal mucosa - Respiratory normal expansion, normal respiratory effort - Abdomen Abdomen: soft, non tender - Psychiatric oriented to time, oriented to person, oriented to place Results - Labs 03/09/20 04:16 03/09/20 04:16 Abnormal Lab Results - Last 24 Hours (Table) 03/08/20 03/08/20 03/08/20 Range/Units 15:31 15:31 15:31 WBC 16.2 H (3.8-10.6) k/uL RBC 3.56 L (3.80-5.40) m/uL Hgb 11.0 L (11.4-16.0) gm/dL Hct 33.1 L (34.0-46.0) % Neutrophils # 9.9 H (1.3-7.7) k/uL Lymphocytes # 5.0 H (1.0-4.8) k/uL Sodium 136 L (137-145) mmol/L Chloride 111 H (98-107) mmol/L Carbon Dioxide 17 L (22-30) mmol/L BUN 52 H (7-17) mg/dL Glucose 112 H (74-99) mg/dL Calcium (8.4-10.2) mg/dL Lipase 16 L (23-300) U/L Stool Occult Blood Positive H (Negative) 03/09/20 03/09/20 Range/Units 04:16 04:16 WBC (3.8-10.6) k/uL RBC 2.34 L (3.80-5.40) m/uL Hgb 7.1 L D (11.4-16.0) gm/dL Hct 22.0 L (34.0-46.0) % Neutrophils # (1.3-7.7) k/uL Lymphocytes # (1.0-4.8) k/uL Sodium (137-145) mmol/L Chloride 119 H (98-107) mmol/L Carbon Dioxide 16 L (22-30) mmol/L BUN 24 H (7-17) mg/dL Glucose (74-99) mg/dL Calcium 8.2 L (8.4-10.2) mg/dL Lipase (23-300) U/L Stool Occult Blood (Negative) Diabetes panel 03/08/20 03/09/20 Range/Units 15:31 04:16 Sodium 136 L 137 (137-145) mmol/L Potassium 4.0 3.5 (3.5-5.1) mmol/L Chloride 111 H 119 H (98-107) mmol/L Carbon Dioxide 17 L 16 L (22-30) mmol/L BUN 52 H 24 H (7-17) mg/dL Creatinine 0.72 0.57 (0.52-1.04) mg/dL Glucose 112 H 90 (74-99) mg/dL Calcium 9.5 8.2 L (8.4-10.2) mg/dL AST 18 (14-36) U/L ALT 14 (4-34) U/L Alkaline Phosphatase 48 (38-126) U/L Total Protein 6.3 (6.3-8.2) g/dL Albumin 3.6 (3.5-5.0) g/dL Calcium panel 03/08/20 03/09/20 Range/Units 15:31 04:16 Calcium 9.5 8.2 L (8.4-10.2) mg/dL Albumin 3.6 (3.5-5.0) g/dL Pituitary panel 03/08/20 03/09/20 Range/Units 15:31 04:16 Sodium 136 L 137 (137-145) mmol/L Potassium 4.0 3.5 (3.5-5.1) mmol/L Chloride 111 H 119 H (98-107) mmol/L Carbon Dioxide 17 L 16 L (22-30) mmol/L BUN 52 H 24 H (7-17) mg/dL Creatinine 0.72 0.57 (0.52-1.04) mg/dL Glucose 112 H 90 (74-99) mg/dL Calcium 9.5 8.2 L (8.4-10.2) mg/dL Adrenal panel 03/08/20 03/09/20 Range/Units 15:31 04:16 Sodium 136 L 137 (137-145) mmol/L Potassium 4.0 3.5 (3.5-5.1) mmol/L Chloride 111 H 119 H (98-107) mmol/L Carbon Dioxide 17 L 16 L (22-30) mmol/L BUN 52 H 24 H (7-17) mg/dL Creatinine 0.72 0.57 (0.52-1.04) mg/dL Glucose 112 H 90 (74-99) mg/dL Calcium 9.5 8.2 L (8.4-10.2) mg/dL Total Bilirubin 0.3 (0.2-1.3) mg/dL AST 18 (14-36) U/L ALT 14 (4-34) U/L Alkaline Phosphatase 48 (38-126) U/L Total Protein 6.3 (6.3-8.2) g/dL Albumin 3.6 (3.5-5.0) g/dL - Imaging CT scan - abdomen: image reviewed (3 mm right-sided proximal stone.) Assessment and Plan Assessment: Excisional female admitted to the hospital with GI bleed, CT on presentation showed a 3 mm right-sided proximal stone, still symptomatic from her stone. She is scheduled to undergo endoscopy tomorrow by GI Plan: -UA/urine culture -Strain urine -We will reassess tomorrow, if still symptomatic we'll plan to proceed with right-sided stent versus ureteroscopy on Saturday
[2020-03-09] MEDS: LEVOFLOXACIN 750MG-D5W PMX 750 MG in DEXTROSE/WATER 1 150ML.BAG IVPB SCH (20:49)
[2020-03-09] MEDS: METOCLOPRAMIDE 5 MG/ML 2 ML VIAL IVP PRN (20:57)
[2020-03-10] MEDS: METOCLOPRAMIDE 5 MG/ML 2 ML VIAL IVP PRN (02:45)
[2020-03-10] MEDS: ONDANSETRON 4 MG/2 ML VIAL IVP PRN ×3 (03:49→21:31)
[2020-03-10] MEDS: ACETAMINOPHEN TAB 325 MG TAB PO PRN (03:50)
[2020-03-10 05:15] LABS: Basophils % (A) 0 %; Eosinophils # (A) 0.1 k/uL (0-0.7); Eosinophils % (A) 1 %; HCT 21.6 % (34.0-46.0); HGB 7.2 gm/dL (11.4-16.0); Lymphocytes # (A) 2.6 k/uL (1.0-4.8); Lymphocytes % (A) 32 %; MCH 30.3 pg (25.0-35.0); MCHC 33.3 g/dL (31.0-37.0); MCV 91.2 fL (80.0-100.0); Mean Platelet Volume 7.2; Monocytes # (A) 0.3 k/uL (0-1.0); Monocytes % (A) 4 %; Neutrophils # (A) 4.9 k/uL (1.3-7.7); Neutrophils % (A) 61 %; Platelet Count 260 k/uL (150-450); RBC 2.37 m/uL (3.80-5.40); RDW 13.4 % (11.5-15.5); WBC 8.1 k/uL (3.8-10.6)
[2020-03-10 05:47] LABS: African American GFR (CKD) >90 (>60 ml/min/1.73 sqM); Anion Gap 4 mmol/L; Blood Urea Nitrogen 8 mg/dL (7-17); Calcium 8.5 mg/dL (8.4-10.2); Carbon Dioxide 19 mmol/L (22-30); Chloride 110 mmol/L (98-107); Glucose 96 mg/dL (74-99); Non-African American GFR(CKD) >90 (>60 ml/min/1.73 sqM); Potassium 3.7 mmol/L (3.5-5.1); Sodium 133 mmol/L (137-145)
[2020-03-10] MEDS: DOCUSATE 100 MG CAP PO SCH ×2 (08:03→21:30)
[2020-03-10] MEDS: metroNIDAZOLE-NS PMX 500 MG in SALINE 1 100ML.BAG IVPB SCH ×3 (08:14→21:30)
[2020-03-10] MEDS: PANTOPRAZOLE 40 MG/10 ML VIAL IV SCH ×2 (08:15→21:30)
[2020-03-10] MEDS: SODIUM CHLORIDE 0.9% 1,000 ML IV SCH ×2 (08:15→15:12)
--- NOTE | 2020-03-10 09:58 | P.PN ---
Subjective Progress Note Date: 03/10/20 Principal diagnosis: Gastrointestinal bleed. 54-year-old female who sees Dr. Sewell as a primary. The patient comes in with blood in her stool. She states that for the last day or 2, she's noticed black tarry stools. She's also had melanotic stools and burgundy stools. In allyssa tion, she complains of back pain. She has been complaining of nausea and vomiting as well as some abdominal cramping, and low back pain as mentioned above. She denies any fever or chills. Her only major medical problem is chronic back and neck and shoulder pain for which she takes [place]. She's never had any issues with kidney stone or gastrointestinal bleeding. She drinks alcohol rarely, and smokes occasionally. When she presented to the emergency room, she was hypotensive, with blood pressures in the 70s. She received quite a bit of fluid in the emergency room. Her hemoglobin dropped from 11.0 to 7.1. Apparently a year ago, her hemoglobin was 14. Both gastroenterology, and urology were consulted. Currently, she is not receiving any supplemental oxygen. She's getting saline at 100 mL an hour. I asked the nurse to get a urinalysis on this patient. Progress note dated 03/10/2020. This is a 54-year-old female that was seen yesterday in consultation. She was admitted to the intensive care unit with a diagnosis of gastrointestinal bleed. The patient's hemoglobin today was 7.2. She is apparently scheduled for an EGD, and colonoscopy, later today. She's getting saline at 100 mL an hour. She has had no further bleeding. Hemodynamically, she is very stable. The patient could've gone out of the ICU yesterday. For some reason, she is still in the ICU this morning. She has been very stable overnight. Her temperature is 90.8 degrees, heart rate 66, respiratory rate 12, and blood pressure 117/77. Room air saturation is 98%. Her hemoglobin this morning was 7.2. She has no complaints today. Objective - Vital Signs Vital signs: Vital Signs Temp 98 F 03/10/20 02:00 Pulse 66 03/10/20 08:00 Resp 12 03/10/20 08:00 BP 83/58 03/10/20 08:00 Pulse Ox 98 03/10/20 08:00 Intake & Output 03/09/20 03/10/20 03/10/20 18:59 06:59 18:59 Intake Total 1200 350 Output Total 2900 1600 Balance -1700 -1250 Weight 66.5 kg Intake: IV 1200 350 .9 900 100 Levofloxacin 750Mg-D5w 150 Pmx 750 mg In Dextrose/ Water 1 150ml.bag @ 100 mls/hr IVPB DAILY@1900 [facility] Rx#:[id number] Potassium Chloride 10 meq 100 In Water For Injection 1 100ml.bag @ 100 mls/hr IVPB Q1HR [facility] Rx#: [id number] metroNIDAZOLE-NS PMX 500 200 100 mg In Saline 1 100ml.bag @ 100 mls/hr IVPB TID [facility] Rx#:[id number] Output: Urine 2900 1600 Other: Voiding Method Bedside Commode Bedside Commode - Exam No acute distress, oriented 3. HEENT examination is grossly unremarkable. Mucous membranes are moist. No oral lesions. Neck supple. Full range of motion. No adenopathy thyromegaly or neck vein distention. Cardiovascular examination reveals regular rhythm rate. S1-S2 normal. No S3 or S4. No discernible murmur noted. Heart rate is 77 bpm. Lungs reveal clear breath sounds. Her sounds are equal bilaterally. No adventitious lung sounds including wheezes rhonchi or crackles. Abdomen soft bowel sounds are heard. No masses or tenderness. Extremities are intact. No cyanosis clubbing or edema. Skin is without rash or lesion. Neurologic examination is brief but nonfocal. - Labs CBC & Chem 7: 03/10/20 05:05 03/10/20 05:05 Labs: Abnormal Lab Results - Last 24 Hours (Table) 03/10/20 03/10/20 Range/Units 05:05 05:05 RBC 2.37 L (3.80-5.40) m/uL Hgb 7.2 L (11.4-16.0) gm/dL Hct 21.6 L (34.0-46.0) % Sodium 133 L (137-145) mmol/L Chloride 110 H (98-107) mmol/L Carbon Dioxide 19 L (22-30) mmol/L Assessment and Plan Assessment: Acute gastrointestinal bleed, with resultant anemia. 3 mm obstructing right proximal ureter stone with moderate hydronephrosis. Diffuse colonic wall thickening, potentially consistent with colitis, possibly explaining the patient's gastrointestinal bleeding. Chronic back And shoulder pain, for which the patient uses [place]. Hyperchloremic non-anion gap metabolic acidosis, most likely secondary to significant saline administration. Anticipated, EGD, and colonoscopy today. Plan: Plan dated 03/10/2020. The patient is scheduled to have an EGD and colonoscopy today. Hemodynamic status is stable. Respiratory status is stable. The patient has had no further bleeding. She's not requiring any supplemental oxygen. She's getting saline at 100 mL an hour. Today's hemoglobin is 7.2. If her procedure showed no evidence of active bleeding, or any significant pathology, she can be directly transferred to the general medical floor without telemetry. Time with Patient: Less than 30
--- NOTE | 2020-03-10 11:00 | P.CONS ---
History of Present Illness - Reason for Consult Consult date: 03/09/20 Anemia, melena Requesting physician: Lester E Sheet - Chief Complaint Back pain, difficulty ambulating, dark-colored stool and vomiting - History of Present Illness 54-year-old female with a history of GERD and tobacco abuse who presented to the hospital for evaluation back pain, vomiting and dark-colored stool. Patient reports that pain that started on Saturday and continued to progress. She reports episodes of nausea and vomiting described as brown in color as well as multiple episodes of dark-colored stool. She reports difficulty walking secondary to the back pain. The patient does take [place] and reports only occasional use of ibuprofen. She did have colonoscopy with hemorrhoidectomy in 2011. Patient's initial hemoglobin was found to be 11 and subsequently fell to 7.1. The patient had a computed tomography scan showing a 3 mm right ureteral calculus with diffuse mild colonic wall thickening suggestive of possible colitis with nonspecific focal narrowing involving the proximal sigmoid colon with colonoscopy recommended. Currently she is on antibiotic therapy in the ICU. Review of Systems REVIEW OF SYSTEMS: CONSTITUTIONAL: Denies any fevers, chills, weight change or fatigue. CARDIOVASCULAR: Denies any chest pain, palpitations high or low blood pressures RESPIRATORY: Denies any shortness of breath, hemoptysis or cough. GENITOURINARY: No dysuria or hematuria. MUSCULOSKELETAL: No weakness reported, but she reports back pain making it difficult for her to ambulate. SKIN: Denies any new rashes or lesions, jaundice or pallor. PSYCHIATRIC: Denies any depression or anxiety. NEUROLOGY: Denies headache, denies any new focal deficits, difficulty ambulating secondary to back pain. EARS/NOSE/THROAT: No recent hearing change, congestion, nasal discharge or sore throat. EYES: No pain in eyes, discharge or change in vision. GASTROINTESTINAL: As per HPI. Past Medical History Past Medical History: GERD/Reflux, Musculoskeletal Disorder Additional Past Medical History / Comment(s): "clicking and popping in neck area very painful,rt shoulder very painful" History of Any Multi-Drug Resistant Organisms: None Reported Past Surgical History: Orthopedic Surgery Additional Past Surgical History / Comment(s): lt elbow,,rt hand surgery Past Anesthesia/Blood Transfusion Reactions: Motion Sickness, Postoperative Nausea & Vomiting (PONV) Past Psychological History: No Psychological Hx Reported Smoking Status: Current some day smoker Past Alcohol Use History: Occasional Additional Past Alcohol Use History / Comment(s): started smoking at age 15-18 Past Drug Use History: None Reported - Past Family History Father Family Medical History: Cancer Additional Family Medical History / Comment(s): lung CA Mother Additional Family Medical History / Comment(s): bone degenerating disease- multiple jt replacements Medications and Allergies Home Medications Medication Instructions Recorded Confirmed Type HYDROcodone/APAP 7.5-325MG [[place] 1 tab PO TID 03/08/20 03/08/20 History 7.5-325] Allergies Allergy/AdvReac Type Severity Reaction Status Date / Time Penicillins Allergy Nausea & Verified 03/08/20 17:35 Vomiting & Diarrhea,"passed out" Physical Exam Vitals: Vital Signs Temp Pulse Resp BP Pulse Ox 03/09/20 12:00 97.9 F 86 15 98/70 98 03/09/20 11:00 85 16 120/72 96 03/09/20 10:00 86 10 L 116/76 98 03/09/20 09:00 96 12 115/77 98 03/09/20 08:00 98.7 F 76 10 L 125/73 97 03/09/20 07:00 80 15 116/79 97 03/09/20 06:00 84 18 121/64 99 03/09/20 05:30 82 15 96 03/09/20 05:00 78 17 116/72 96 03/09/20 04:30 74 19 117/71 97 03/09/20 04:00 98 F 75 20 109/61 96 03/09/20 03:30 76 16 122/74 95 03/09/20 03:00 85 17 114/66 97 03/09/20 02:30 79 16 102/57 99 03/09/20 02:00 87 20 108/65 98 03/09/20 01:30 81 19 116/69 96 03/09/20 01:00 78 17 114/71 98 03/09/20 00:30 79 18 111/62 96 03/09/20 00:00 97.9 F 80 15 109/85 95 03/08/20 23:30 86 18 90/71 99 03/08/20 23:00 80 16 98/67 95 03/08/20 22:30 70 18 78/59 98 03/08/20 22:15 104 H 19 78/59 89 L 03/08/20 22:00 74 18 64/34 96 03/08/20 21:45 74 15 79/54 94 L 03/08/20 21:30 79 16 87/50 99 03/08/20 21:15 73 15 93/68 96 03/08/20 21:00 63 17 87/67 93 L 03/08/20 20:45 68 15 90/63 96 03/08/20 20:30 61 18 94/69 98 03/08/20 20:15 98 F 84 19 90/58 99 03/08/20 20:00 98.0 F 71 16 105/55 99 03/08/20 17:53 87 16 114/89 98 03/08/20 16:52 18 85/55 99 03/08/20 15:28 93 16 118/59 98 03/08/20 15:08 98.2 F 95 16 97/69 100 Intake and Output 03/08/20 03/09/20 03/09/20 22:59 06:59 14:59 Intake Total 2300 1700 800 Output Total 500 2150 1700 Balance 1800 -450 -900 Intake: IV 300 1700 800 .9 300 700 600 Potassium Chloride 10 meq 100 In Water For Injection 1 100ml.bag @ 100 mls/hr IVPB Q1HR [facility] Rx#: [id number] Sodium Chloride 0.9% 1, 1000 000 ml @ 999 mls/hr IV . Q1H1M [facility] Rx#:[id number] metroNIDAZOLE-NS PMX 500 100 mg In Saline 1 100ml.bag @ 100 mls/hr IVPB TID [facility] Rx#:[id number] Amount of Fluid Infused ( 2000 ml) Output: Urine 500 2150 1700 Other: Voiding Method Bedpan Bedpan Bedside Commode Weight 65.771 kg 66.5 kg 66.5 kg On physical examination, patient appears comfortable in no apparent distress. HEAD: Normocephalic, atraumatic. EYES: No scleral icterus. No conjunctival injection. MOUTH: No lesions, tongue midline. NECK: Trachea midline, no gross abnormalities. CHEST: Clear to auscultation with no wheezing or rhonchi appreciated. HEART: Regular rate and rhythm. ABDOMEN: Soft, mildly distended and mildly tender to palpation. Bowel sounds are positive. No organomegaly. No guarding or rigidity. EXTREMITIES: No pedal edema. SKIN: No rashes, no jaundice. NEUROLOGIC: Alert and oriented x3. No focal deficits. Results CBC & Chem 7: 03/10/20 05:05 03/10/20 05:05 Labs: Abnormal Lab Results - Last 24 Hours (Table) 03/08/20 03/08/20 03/08/20 Range/Units 15:31 15:31 15:31 WBC 16.2 H (3.8-10.6) k/uL RBC 3.56 L (3.80-5.40) m/uL Hgb 11.0 L (11.4-16.0) gm/dL Hct 33.1 L (34.0-46.0) % Neutrophils # 9.9 H (1.3-7.7) k/uL Lymphocytes # 5.0 H (1.0-4.8) k/uL Sodium 136 L (137-145) mmol/L Chloride 111 H (98-107) mmol/L Carbon Dioxide 17 L (22-30) mmol/L BUN 52 H (7-17) mg/dL Glucose 112 H (74-99) mg/dL Calcium (8.4-10.2) mg/dL Lipase 16 L (23-300) U/L Stool Occult Blood Positive H (Negative) 03/09/20 03/09/20 Range/Units 04:16 04:16 WBC (3.8-10.6) k/uL RBC 2.34 L (3.80-5.40) m/uL Hgb 7.1 L D (11.4-16.0) gm/dL Hct 22.0 L (34.0-46.0) % Neutrophils # (1.3-7.7) k/uL Lymphocytes # (1.0-4.8) k/uL Sodium (137-145) mmol/L Chloride 119 H (98-107) mmol/L Carbon Dioxide 16 L (22-30) mmol/L BUN 24 H (7-17) mg/dL Glucose (74-99) mg/dL Calcium 8.2 L (8.4-10.2) mg/dL Lipase (23-300) U/L Stool Occult Blood (Negative) CT scan - abdomen: report reviewed (Computed tomography scan of the abdomen with right ureteral calculus and diffuse mild colonic wall thickening suggestive of possible colitis as well as nonspecific focal narrowing of the sigmoid colon.) Assessment and Plan (1) Normocytic normochromic anemia Narrative/Plan: 54-year-old pleasant female who presented to the hospital with complaints of back pain, difficulty walking, vomiting and melena. Patient seen in the ICU where she is receiving 6 L of IV fluids. Patient was found to have a fall in her hemoglobin after presentation down from 11-7.1. She does report some dark colored stool and dark colored vomiting prior to presentation. Remote history of colonoscopy in 2011 with hemorrhoidectomy. Computed tomography scan performed in evaluation showed a right ureteral calculus and diffuse mild colonic wall thickening suggestive of possible colitis with nonspecific focal narrowing in the sigmoid colon with colonoscopy recommended. Unclear if patient is suffering from upper GI bleed with differential including peptic ulcer disease, gastritis, esophagitis, AVM or other etiology or if fall in hemoglobin is predominantly hemodilution, lower GI findings on computed tomography scan also concerning for possible colitis versus stricturing with plan for EGD and colonoscopy for further evaluation. 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 of the patient at [facility], with all the questions answered to her satisfaction Thank you for allowing us to participate in the care of the patient we will continue to follow
[2020-03-10] MEDS ORDERED: LACTATED RINGERS 1,000 ML IV ONE (12:54)
[2020-03-10] MEDS ORDERED: ONDANSETRON 4 MG/2 ML VIAL ONE (13:01)
[2020-03-10] MEDS ORDERED: PROPOFOL 10 MG/ML 20 ML VIAL IV ONE (13:01)
[2020-03-10] MEDS ORDERED: LIDOCAINE 1% INJ 10MG/ML (20 ML MDV) ONE (13:01)
--- NOTE | 2020-03-10 13:30 | P.PCN ---
Date of Procedure: 03/10/20 Description of Procedure: Brief history: 54-year-old female with a history of GERD and tobacco abuse who presented to the hospital for evaluation back pain, vomiting and dark-colored stool. Patient reports that pain that started on Saturday and continued to progress. She reports episodes of nausea and vomiting described as brown in color as well as multiple episodes of dark-colored stool. She reports difficulty walking secondary to the back pain. The patient does take [place] and reports only occasional use of ibuprofen. She did have colonoscopy with hemorrhoidectomy in 2011. Patient's initial hemoglobin was found to be 11 and subsequently fell to 7.1. The patient had a computed tomography scan showing a 3 mm right ureteral calculus with diffuse mild colonic wall thickening suggestive of possible colitis with nonspecific focal narrowing involving the proximal sigmoid colon with colonoscopy recommended. Currently she is on antibiotic therapy in the ICU. Procedure performed: Esophagogastroduodenoscopy with biopsy Flexible sigmoidoscopy Estimated blood loss: Minimal. Preoperative diagnosis: Melena, anemia, abnormal computed tomography scan abdomen, colitis Anesthesia: MAC Procedure: After informed consent was obtained from the patient was brought into the end oscopy unit and IV sedation was administered by anesthesia under continuous monitoring. Initially upper endoscopy was done. The Olympus GF 190 video endoscope was inserted into the mouth and esophagus intubated without any difficulty and was gradually advanced into the stomach and duodenum and carefully examined. The bulb and second part of the duodenum appeared normal, with biopsies taken. The scope was then withdrawn into the stomach adequately insufflated with air and upon careful examination the antrum and body, cardia and fundus appeared normal, except for some mild scattered erythema in the antrum and body suggestive of mild gastritis and a nonbleeding antral ulcer approximately 5 mm in size which was biopsied. Biopsies also taken of the antrum and body. The scope was then withdrawn into the esophagus. The GE junction was located at 38 cm to the incisors. Small 2 cm hiatal hernia noted. It appeared regular with no erythema erosions or ulcerations. Rest of the esophagus appeared normal. Patient tolerated the procedure well. At this time the patient continued to remain sedation. Initial digital rectal examination was normal. Olympus pediatric 190 video colonoscope was then inserted into the rectum and gradually advanced into the descending colon. The prep in the rectum and sigmoid was good and fair to poor in the descending colon. A few scattered diverticula noted in the sigmoid with no mass identified. Otherwise mucosa appeared normal. Retroflexion in the rectum with no lesions. Patient tolerated the procedure well. Impression: 1. Nonbleeding antral ulcer without high risk stigmata for bleeding, biopsied. Mild gastritis, antrum and body biopsied. Small hiatal hernia. 2. Normal-appearing mucosa flexible sigmoidoscopy to the mid descending colon. Mild sigmoid diverticulosis. No mass identified. Recommendations: Findings of this examination were discussed with the patient. Okay to advance diet, patient would like trial of liquids. Continue current medical management. Continue antibiotic therapy. Patient should be continued on twice daily Protonix therapy. Other medical management per primary team. Await biopsy results. Recommendation is that patient have full colonoscopy in the next 4-6 weeks for full evaluation after discharge.
[2020-03-10] MEDS: MORPHINE SULFATE 2 MG/ML SYRINGE IVP PRN ×3 (15:13→21:31)
[2020-03-10] MEDS: LEVOFLOXACIN 750MG-D5W PMX 750 MG in DEXTROSE/WATER 1 150ML.BAG IVPB SCH (19:03)
--- NOTE | 2020-03-10 20:23 | P.PN ---
Subjective This is a pleasant 54 years old female with past medical history of GERD and musculoskeletal disorder. She smokes cigarettes 1-2 cigarettes occasionally. She is a patient of Dr. Melendez. She presents mainly because of low back pain which started Saturday about 3 days ago, 2 days ago she woke up with pain more severe and more to the right side and she had difficulty walking because of the pain. And then she started having black stool associated with sweating for 2 hours associated with dizziness and she got concerned [facility] She denies chest pain or dyspnea, no nausea vomiting, no fresh blood per stool, no diarrhea. She denies dysuria. No fever. She smokes few cigarettes occasionally. No alcohol or illicit drugs. She denies using NSAIDs, she said she takes [place] 7.5 but not clinically On admission patient was hypotensive with blood pressure 85/55 at certain point. Currently Vitas looks stable with blood pressure 116,/79 Labs reviewed showing the patency 9.5K, hemoglobin dropped to 11 down to 7.1. I NR is normal 1.0, alk phos and creatinine normal. Liver enzymes not elevated. Hemoccult test of the stool is positive. EKG showed normal sinus rhythm at [address]-T changes CT of the abdomen and pelvis with contrast showing 3 mm right ureter calculus with hydronephrosis. Diffuse mild colonic wall thickening, suspicious for colitis with focal narrowing in the proximal sigmoid colon narrowing The emergency room patient received levofloxacin and Flagyl and received pain medications, Zofran, Protonix and IV fluids, about 5 L, patient currently kept on 100 mL per hour 03/10/20 pt is seen and examined in ICU , she is still in some distress due to her low back pain , however she did not want to increase her morphine dose. she underwent EGD today showing non-bleeding antral ulcer and biopsy was taken , while sigmoidoscopy showed normal appearing mucose with little diverticulosis. she is hemodynamically stable , and hemoglobin today is 7.2. no need for blood transfusion as currently she is stable. iron pills are added . urology on the case for her right hydronephrosis and right ureteral stone with possible need for intervention with cystoscopy or ureteral stent if no improvement Objective - Vital Signs Vital signs: Vital Signs Temp 98 F 03/10/20 02:00 Pulse 66 03/10/20 08:00 Resp 12 03/10/20 08:00 BP 83/58 03/10/20 08:00 Pulse Ox 98 03/10/20 08:00 Intake & Output 03/09/20 03/10/20 03/10/20 18:59 06:59 18:59 Intake Total 1200 350 Output Total 2900 1600 Balance -1700 -1250 Weight 66.5 kg Intake: IV 1200 350 .9 900 100 Levofloxacin 750Mg-D5w 150 Pmx 750 mg In Dextrose/ Water 1 150ml.bag @ 100 mls/hr IVPB DAILY@1900 [facility] Rx#:[id number] Potassium Chloride 10 meq 100 In Water For Injection 1 100ml.bag @ 100 mls/hr IVPB Q1HR [facility] Rx#: [id number] metroNIDAZOLE-NS PMX 500 200 100 mg In Saline 1 100ml.bag @ 100 mls/hr IVPB TID [facility] Rx#:[id number] Output: Urine 2900 1600 Other: Voiding Method Bedside Commode Bedside Commode - Exam GENERAL: The patient is alert and oriented x3, not in any acute distress. Well developed, well nourished. HEENT: Pupils are round and equally reacting to light. EOMI. No scleral icterus. No conjunctival pallor. Normocephalic, atraumatic. No pharyngeal erythema. No thyromegaly. CARDIOVASCULAR: S1 and S2 present. No murmurs, rubs, or gallops. PULMONARY: Chest is clear to auscultation, no wheezing or crackles. ABDOMEN: Soft, nontender, nondistended, normoactive bowel sounds. No palpable organomegaly. -MUSCULOSKELETAL: No joint swelling or deformity. Right costovertebral angle tenderness EXTREMITIES: No cyanosis, clubbing, or pedal edema. NEUROLOGICAL: Gross neurological examination did not reveal any focal deficits. SKIN: No rashes. No petechiae - Labs CBC & Chem 7: 03/10/20 05:05 03/10/20 05:05 Labs: Abnormal Lab Results - Last 24 Hours (Table) 03/10/20 03/10/20 Range/Units 05:05 05:05 RBC 2.37 L (3.80-5.40) m/uL Hgb 7.2 L (11.4-16.0) gm/dL Hct 21.6 L (34.0-46.0) % Sodium 133 L (137-145) mmol/L Chloride 110 H (98-107) mmol/L Carbon Dioxide 19 L (22-30) mmol/L Assessment and Plan Assessment: Acute GI bleed secondary to antral ulcer Acute blood loss anemia Acute colitis, with CT of the abdomen and pelvis showing possible mild colitis with proximal sigmoid colon narrowing Right ureteral calculus, 3 mm with moderate right hydronephrosis. History of GERD Nicotine abuse Plan: This is a pleasant 54 years old female presents with possible junk believe, colitis and right hydronephrosis secondary to stone. Continue with IV hydration, continue with Protonix. Hold NSAIDs and blood thinners. Monitor hemoglobin and transfuse as needed. Monitor hemoglobin. Stool studies and C. diff. GI consult. Also critical care team consult. will consult urology for recurrent ureteral stone and hydronephrosis . We'll check urine analysis Labs and medication were reviewed.. Continue same treatment. Continue with symptomatic treatment. Resume home medication. Monitor lytes and vitals. DVT and GI prophylaxis. Further recommendations depends on the clinical course of the patient DVT prophylaxis: Subcutaneous heparin GI Prophylaxis: Ppi PT/OT: Pending Prognosis is guarded
[2020-03-10] MEDS: FERROUS SULFATE 325 MG TAB PO SCH (21:31)
[2020-03-11] MEDS: SODIUM CHLORIDE 0.9% 1,000 ML IV SCH ×2 (01:03→11:30)
[2020-03-11] MEDS: ACETAMINOPHEN TAB 325 MG TAB PO PRN (01:03)
[2020-03-11] MEDS: METOCLOPRAMIDE 5 MG/ML 2 ML VIAL IVP PRN (01:10)
[2020-03-11] MEDS: MORPHINE SULFATE 4 MG/ML SYRINGE IV PRN ×4 (01:11→23:29)
[2020-03-11] MEDS: ONDANSETRON 4 MG/2 ML VIAL IVP PRN (05:06)
[2020-03-11 07:13] LABS: Basophils % (A) 1 %; Eosinophils # (A) 0.1 k/uL (0-0.7); Eosinophils % (A) 1 %; HCT 21.8 % (34.0-46.0); HGB 7.3 gm/dL (11.4-16.0); Lymphocytes # (A) 3.8 k/uL (1.0-4.8); Lymphocytes % (A) 43 %; MCH 31.2 pg (25.0-35.0); MCHC 33.4 g/dL (31.0-37.0); MCV 93.5 fL (80.0-100.0); Mean Platelet Volume 7.3; Monocytes # (A) 0.5 k/uL (0-1.0); Monocytes % (A) 6 %; Neutrophils % (A) 46 %; Platelet Count 297 k/uL (150-450); RBC 2.33 m/uL (3.80-5.40); RDW 13.4 % (11.5-15.5); WBC 8.8 k/uL (3.8-10.6)
[2020-03-11] MEDS: FERROUS SULFATE 325 MG TAB PO SCH ×2 (08:04→21:26)
[2020-03-11] MEDS: DOCUSATE 100 MG CAP PO SCH ×2 (08:11→20:12)
[2020-03-11] MEDS: MORPHINE SULFATE 2 MG/ML SYRINGE IVP PRN ×3 (08:24→19:33)
[2020-03-11] MEDS: PANTOPRAZOLE 40 MG/10 ML VIAL IV SCH ×2 (08:33→20:11)
[2020-03-11] MEDS: metroNIDAZOLE-NS PMX 500 MG in SALINE 1 100ML.BAG IVPB SCH ×3 (08:35→21:45)
--- NOTE | 2020-03-11 14:04 | P.PN ---
Subjective Progress Note Date: 03/11/20 Principal diagnosis: Back pain, abdominal pain, dark stool and vomiting Seen and examined lying in bed. She is status post upper endoscopy and flex sigmoidoscopy yesterday. She is scheduled today with urology for cystoscopy, right ureteroscopy with stent. She states primarily most of her pain is in her back. She denies any further melena or black tarry stools. She denies any nausea or vomiting. No acute changes through the night. She has been afebrile. Objective - Vital Signs Vital signs: Vital Signs Temp 98.3 F 03/11/20 04:53 Pulse 78 03/11/20 04:53 Resp 16 03/11/20 04:53 BP 116/75 03/11/20 04:53 Pulse Ox 98 03/11/20 04:53 Intake & Output 03/10/20 03/11/20 03/11/20 18:59 06:59 18:59 Intake Total 600 Output Total 800 350 Balance -200 -350 Intake: IV 400 Oral 200 Output: Urine 800 350 Other: Voiding Method Bedside Commode Bedside Commode # Voids 3 1 - Exam General appearance: The patient is alert, oriented, in no acute distress. HET: Head is normocephalic and atraumatic. Conjunctiva pink. Sclera anicteric. Neck: Supple without lymphadenopathy. Abdomen: Soft, nontender, nondistended with bowel sounds. No guarding or rigidity. Extremities: Normal skin color and turgor. No pedal edema Neurological: No focal deficits. Alert and oriented 3. - Labs CBC & Chem 7: 03/11/20 06:50 03/10/20 05:05 Labs: Abnormal Lab Results - Last 24 Hours (Table) 03/11/20 Range/Units 06:50 RBC 2.33 L (3.80-5.40) m/uL Hgb 7.3 L (11.4-16.0) gm/dL Hct 21.8 L (34.0-46.0) % Assessment and Plan (1) Normocytic normochromic anemia Narrative/Plan: This is a 54-year-old pleasant female who presented to the hospital with complaints of back pain, difficulty walking, vomiting and melena. Patient seen in the ICU where she is receiving 6 L of IV fluids. Patient was found to have a fall in her hemoglobin after presentation down from 11-7.1. She does report some dark colored stool and dark colored vomiting prior to presentation. Remote history of colonoscopy in 2012 with hemorrhoidectomy. Computed tomography scan performed in evaluation showed a right ureteral calculus and diffuse mild colonic wall thickening suggestive of possible colitis with nonspecific focal narrowing in the sigmoid colon with colonoscopy recommended. Unclear if patient is suffering from upper GI bleed with differential including peptic ulcer disease, gastritis, esophagitis, AVM or other etiology or if fall in hemoglobin is predominantly hemodilution, lower GI findings on computed tomography scan also concerning for possible colitis versus stricturing with plan for EGD and colonoscopy for further evaluation. Patient is status post upper endoscopy which showed a nonbleeding antral ulcer without high-risk stigmata for bleeding, which was biopsied. Mild gastritis, antrum and body biopsied. Small hiatal hernia Flexible sigmoidoscopy showed a normal-appearing mucosa flexible sigmoidoscopy to the mid descending colon. Mild sigmoid diverticulosis. No mass identified. She has had no further nausea or vomiting, no further rectal bleeding or blood in the stool. Today's hemoglobin is stable at 7.3. Current Visit: Yes Status: Acute Code(s): D64.9 - ANEMIA, UNSPECIFIED SNOMED Code(s): 04252581 (2) Abnormal computed tomography of abdomen and pelvis Current Visit: Yes Status: Acute Code(s): R93.5 - ABN FINDINGS ON DX IMAGING OF ABD REGIONS, INC RETROPERITON SNOMED Code(s): 330106132 (3) Melena Current Visit: Yes Status: Acute Code(s): K92.1 - MELENA SNOMED Code(s): 1872909 Plan: Supportive care Patient may advance diet Patient is status post upper endoscopy and flex sigmoidoscopy Continue with Protonix 40 mg twice daily Continue antibiotic therapy Patient recommended to follow up with gastroenterology for biopsy results, and to schedule a full colonoscopy in the next 4-6 weeks for further evaluation Thank you for allowing us to participate in the care of the patient we will sign off at this time Dr. Nevarez I agree with the dictator's note, documented as a scribe by Abbey Almodovar.
[2020-03-11] MEDS ORDERED: IV FLUID CONTINUATION 700 ML IV ONE (15:23)
[2020-03-11] MEDS ORDERED: SCOPOLAMINE 1.5MG/72HR PATCH TRANSDERM ONE (16:04)
[2020-03-11] MEDS ORDERED: DEXAMETHASONE SOD PHOSPHATE 4 MG/ML 1 ML VIAL IVP ONE (16:04)
[2020-03-11] MEDS ORDERED: ONDANSETRON 4 MG/2 ML VIAL IVP ONE (16:04)
[2020-03-11] MEDS ORDERED: LIDOCAINE 1% INJ 10MG/ML (20 ML MDV) ONE (16:48)
[2020-03-11] MEDS ORDERED: MIDAZOLAM 2 MG/2 ML VIAL ONE (16:48)
[2020-03-11] MEDS ORDERED: fentaNYL (PF) 50 MCG/ML 2 ML AMP ONE (16:48)
[2020-03-11] MEDS ORDERED: PROPOFOL 10 MG/ML 20 ML VIAL IV ONE (16:48)
[2020-03-11] MEDS ORDERED: PHENYLEPHRINE 10 MG/ML VIAL ONE (16:48)
[2020-03-11] MEDS ORDERED: SODIUM CHLORIDE 0.9% 100 ML with ceFAZolin 2,000 MG IV ONE ×2 (17:08)
[2020-03-11] MEDS ORDERED: IOPAMIDOL-370 50ML BTL MISCELLANE ONE ×2 (17:14)
[2020-03-11] MEDS ORDERED: LACTATED RINGERS 1,000 ML IV ONE (17:43)
--- NOTE | 2020-03-11 17:53 | P.PN ---
Subjective Progress Note Date: 03/11/20 no acute overnight event, still having pain this am. Denies N/V Objective - Vital Signs Vital signs: Vital Signs Temp 98.5 F 03/11/20 15:22 Pulse 84 03/11/20 15:22 Resp 16 03/11/20 15:22 BP 120/67 03/11/20 15:22 Pulse Ox 97 03/11/20 15:22 Intake & Output 03/10/20 03/11/20 03/11/20 18:59 06:59 18:59 Intake Total 600 900 Output Total 800 350 826 Balance -200 -350 74 Intake: IV 400 900 Oral 200 Output: Urine 800 350 825 Estimated Blood Loss 1 Other: Voiding Method Bedside Commode Bedside Commode Toilet # Voids 3 1 1 - Constitutional General appearance: Present: no acute distress - Psychiatric Psychiatric: Present: A&O x's 3 - Labs CBC & Chem 7: 03/11/20 06:50 03/10/20 05:05 Labs: Abnormal Lab Results - Last 24 Hours (Table) 03/11/20 Range/Units 06:50 RBC 2.33 L (3.80-5.40) m/uL Hgb 7.3 L (11.4-16.0) gm/dL Hct 21.8 L (34.0-46.0) % Assessment and Plan Assessment: Excisional female admitted to the hospital with GI bleed, CT on presentation showed a 3 mm right-sided proximal stone, still symptomatic from her stone. Still having symptoms secondary to her stone Plan: -OR today for right-sided ureteroscopy, with holmium laser lithotripsy, stone basketing, and stent placement
--- NOTE | 2020-03-11 17:58 | P.OP ---
Date of Procedure: 03/11/20 Preoperative Diagnosis: Right ureteral/renal calculi Postoperative Diagnosis: Same Procedure(s) Performed: Cystoscopy, ureteroscopy, holmium laser lithotripsy, stone basketing, retrograde pyelogram and stent placement Implants: 6-[place] by 24 cm stent Anesthesia: ABHINAV Surgeon: Mahendra Mckinley Estimated Blood Loss (ml): 5 Pathology: other (Right ureteral stone) Condition: stable Disposition: PACU Indications for Procedure: This is a 54-year-old female admitted with a GI bleed. She also underwent a CT that demonstrated 3 mm right-sided proximal stone. She continued to be symptomatic during hospital admission. Discussed with her the option of doing a ureteroscopy. Discussed with her the risk which includes but not limited to bleeding, infection, injury to the ureter. She understood all the risk and agreed to proceed Operative Findings: Right proximal stone, right mid calyx stone Description of Procedure: Patient was brought to the operating room, general anesthesia was induced. She was prepped and draped in sterile fashion a placement dorsal lithotomy position. Cystoscopy fitted with a 22-[place] sheath was inserted per urethra, cystoscopy was performed showed no abnormality within the bladder. Attention was then carried to the right ureteral orifice which was intubated with a 6-[place] open- ended catheter, retrograde pyelogram was performed which showed a filling defect in the proximal ureter with mild hydronephrosis. At this time the catheter was removed and a sensor wire was advanced through the catheter. Next an 1113 [place] access sheath was passed over the wire under fluoroscopy to the proximal ureter. Next the flexible ureteroscope was advanced through the access sheath, the stone was encountered in the proximal ureter, but it migrated into the renal pelvis. Using the holmium laser the stones was fragmented into small fragments, there was an additional stone in the mid calyx which was also fragmented. Sizable fragments were removed using the stone basket. Repeat renoscopy demonstrated no sizable fragments or injury to the kidney. Pullback ureteroscopy demonstrated no injury to the ureter or ureteral stent stones. Next a sensor wire was advanced through the ureteroscope and the ureteroscope was withdrawn with the wire in place. Next a ureteral stent was passed over the wire, the proximal curl was visualized on fluoroscopy and distal curl was vi sualized and cystoscope. The bladder was emptied and the case. The patient tolerated the procedure well was taken to PACU in stable condition
[2020-03-11] MEDS: LEVOFLOXACIN 750MG-D5W PMX 750 MG in DEXTROSE/WATER 1 150ML.BAG IVPB SCH (20:11)
--- NOTE | 2020-03-11 20:55 | P.PN ---
Subjective This is a pleasant 54 years old female with past medical history of GERD and musculoskeletal disorder. She smokes cigarettes 1-2 cigarettes occasionally. She is a patient of Dr. Melendez. She presents mainly because of low back pain which started Saturday about 3 days ago, 2 days ago she woke up with pain more severe and more to the right side and she had difficulty walking because of the pain. And then she started having black stool associated with sweating for 2 hours associated with dizziness and she got concerned and [facility] She denies chest pain or dyspnea, no nausea vomiting, no fresh blood per stool, no diarrhea. She denies dysuria. No fever. She smokes few cigarettes occasionally. No alcohol or illicit drugs. She denies using NSAIDs, she said she takes [place] 7.5 but not clinically On admission patient was hypotensive with blood pressure 85/55 at certain point. Currently Vitas looks stable with blood pressure 116,/79 Labs reviewed showing the patency 9.5K, hemoglobin dropped to 11 down to 7.1. I NR is normal 1.0, alk phos and creatinine normal. Liver enzymes not elevated. Hemoccult test of the stool is positive. EKG showed normal sinus rhythm at [address]-T changes CT of the abdomen and pelvis with contrast showing 3 mm right ureter calculus with hydronephrosis. Diffuse mild colonic wall thickening, suspicious for colitis with focal narrowing in the proximal sigmoid colon narrowing The emergency room patient received levofloxacin and Flagyl and received pain medications, Zofran, Protonix and IV fluids, about 5 L, patient currently kept on 100 mL per hour 03/10/20 pt is seen and examined in ICU , she is still in some distress due to her low back pain , however she did not want to increase her morphine dose. she underwent EGD today showing non-bleeding antral ulcer and biopsy was taken , while sigmoidoscopy showed normal appearing mucose with little diverticulosis. she is hemodynamically stable , and hemoglobin today is 7.2. no need for blood transfusion as currently she is stable. iron pills are added . urology on the case for her right hydronephrosis and right ureteral stone with possible need for intervention with cystoscopy or ureteral stent if no improvement 03/11/2020 patient with no abdominal pain, no more evidence of GI bleed, no diarrhea, no ab dominal pain or nausea vomiting. Patient did not have bowel movement for 3 days now. She has some nausea and right flank pain, because of her persistent symptoms related to ureteral stone, urology saw the patient today and took the patient to OR for cystoscopy, ureteroscopy, lithotripsy, stent placement, pyelogram and stent placement. Hemoglobin is stable at 7.3, she is on ferrous sulfate Possible discharge in 24-48 hours if patient keeps improvement and cleared by other consultants Objective - Vital Signs Vital signs: Vital Signs Temp 97.8 F 03/11/20 19:27 Pulse 88 03/11/20 19:27 Resp 18 03/11/20 19:27 BP 117/81 03/11/20 19:27 Pulse Ox 100 03/11/20 19:27 Intake & Output 03/11/20 03/11/20 03/12/20 06:59 18:59 06:59 Intake Total 1000 Output Total 350 1301 250 Balance -350 -301 -250 Intake: IV 1000 Output: Urine 350 1300 250 Estimated Blood Loss 1 Other: Voiding Method Bedside Commode Toilet # Voids 1 1 - Exam GENERAL: The patient is alert and oriented x3, not in any acute distress. Well developed, well nourished. HEENT: Pupils are round and equally reacting to light. EOMI. No scleral icterus. No conjunctival pallor. Normocephalic, atraumatic. No pharyngeal erythema. No thyromegaly. CARDIOVASCULAR: S1 and S2 present. No murmurs, rubs, or gallops. PULMONARY: Chest is clear to auscultation, no wheezing or crackles. ABDOMEN: Soft, nontender, nondistended, normoactive bowel sounds. No palpable o rganomegaly. -MUSCULOSKELETAL: No joint swelling or deformity. Right costovertebral angle tenderness EXTREMITIES: No cyanosis, clubbing, or pedal edema. NEUROLOGICAL: Gross neurological examination did not reveal any focal deficits. SKIN: No rashes. No petechiae - Labs CBC & Chem 7: 03/11/20 06:50 03/10/20 05:05 Labs: Abnormal Lab Results - Last 24 Hours (Table) 03/11/20 Range/Units 06:50 RBC 2.33 L (3.80-5.40) m/uL Hgb 7.3 L (11.4-16.0) gm/dL Hct 21.8 L (34.0-46.0) % Assessment and Plan Assessment: Acute GI bleed secondary to antral ulcer Acute blood loss anemia Acute colitis, with CT of the abdomen and pelvis showing possible mild colitis with proximal sigmoid colon narrowing Right ureteral calculus, 3 mm with moderate right hydronephrosis. S/P cystoscopy, ureteroscopy, lithotripsy, stent placement, pyelogram and stent placement [on 03/11] History of GERD Nicotine abuse Plan: This is a pleasant 54 years old female presents with possible junk believe, colitis and right hydronephrosis secondary to stone. Continue with IV hydration, continue with Protonix. Hold NSAIDs and blood thinners. Monitor hemoglobin and transfuse as needed. Monitor hemoglobin. Stool studies and C. diff. GI consult. Also critical care team consult. will consult urology for recurrent ureteral stone and hydronephrosis . We'll check urine analysis Labs and medication were reviewed.. Continue same treatment. Continue with symptomatic treatment. Resume home medication. Monitor lytes and vitals. DVT and GI prophylaxis. Further recommendations depends on the clinical course of the patient DVT prophylaxis: Subcutaneous heparin GI Prophylaxis: Ppi PT/OT: Pending Prognosis is guarded
[2020-03-11] MEDS: KETOROLAC 15 MG/ML 1 ML VIAL IVP PRN (23:06)
[2020-03-12] MEDS: MORPHINE SULFATE 4 MG/ML SYRINGE IV PRN ×3 (01:36→08:53)
[2020-03-12] MEDS: SODIUM CHLORIDE 0.9% 1,000 ML IV SCH ×4 (01:38→20:28)
[2020-03-12] MEDS: ACETAMINOPHEN TAB 325 MG TAB PO PRN (03:56)
[2020-03-12] MEDS: PANTOPRAZOLE 40 MG TABLET PO SCH ×2 (06:31→17:24)
[2020-03-12] MEDS: MORPHINE SULFATE 2 MG/ML SYRINGE IVP PRN ×5 (06:31→22:44)
[2020-03-12] MEDS: KETOROLAC 15 MG/ML 1 ML VIAL IVP PRN (06:32)
[2020-03-12 07:47] LABS: Basophils % (A) 0 %; Eosinophils % (A) 0 %; Lymphocytes % (A) 30 %; MCH 30.6 pg (25.0-35.0); MCHC 32.3 g/dL (31.0-37.0); MCV 94.8 fL (80.0-100.0); Mean Platelet Volume 7.8; Monocytes # (A) 0.5 k/uL (0-1.0); Monocytes % (A) 5 %; Neutrophils % (A) 61 %; Platelet Count 286 k/uL (150-450); WBC 9.8 k/uL (3.8-10.6)
[2020-03-12 07:51] LABS: HGB 6.4 gm/dL (11.4-16.0)
[2020-03-12 07:52] LABS: HCT 19.9 % (34.0-46.0)
[2020-03-12] MEDS: FERROUS SULFATE 325 MG TAB PO SCH ×2 (08:49→17:24)
[2020-03-12] MEDS: DOCUSATE 100 MG CAP PO SCH ×2 (08:49→20:52)
[2020-03-12] MEDS: metroNIDAZOLE-NS PMX 500 MG in SALINE 1 100ML.BAG IVPB SCH ×3 (08:52→22:46)
[2020-03-12] MEDS ORDERED: ALPRAZolam 0.5 MG TAB PO STA (10:18)
--- NOTE | 2020-03-12 11:04 | P.PN ---
Subjective S/P right ureteroscopy, doing well, having some bladder spasms Objective - Vital Signs Vital signs: Vital Signs Temp 98.5 F 03/12/20 10:52 Pulse 68 03/12/20 10:52 Resp 18 03/12/20 10:52 BP 104/69 03/12/20 10:52 Pulse Ox 97 03/12/20 10:52 Intake & Output 03/11/20 03/12/20 03/12/20 18:59 06:59 18:59 Intake Total 1000 1080 0 Output Total 1301 2300 Balance -301 -1220 0 Intake: IV 1000 Oral 1080 Blood Product 0 Rc As-1 Unit 0 [id number] Output: Urine 1300 2300 Estimated Blood Loss 1 Other: Voiding Method Toilet Toilet # Voids 1 1 - Constitutional General appearance: Present: cooperative, no acute distress - Musculoskeletal Musculoskeletal: Present: gait normal - Psychiatric Psychiatric: Present: A&O x's 3 - Labs CBC & Chem 7: 03/12/20 07:16 03/10/20 05:05 Labs: Abnormal Lab Results - Last 24 Hours (Table) 03/12/20 03/12/20 Range/Units 07:16 08:34 RBC 2.10 L (3.80-5.40) m/uL Hgb 6.4 L* (11.4-16.0) gm/dL Hct 19.9 L* (34.0-46.0) % Crossmatch See Detail Assessment and Plan Assessment: Excisional female admitted to the hospital with GI bleed, CT on presentation showed a 3 mm right-sided proximal stone,S/P right ureteroscopy on 03/11 Plan: -Ok for discharge from urology standpoint, F/U in one weeks for stent removal
[2020-03-12] MEDS: HYDROcodone/APAP 7.5-325MG 1 EACH TAB PO PRN ×2 (14:14→21:33)
[2020-03-12 14:47] LABS: Basophils % (A) 0 %; Eosinophils # (A) 0.1 k/uL (0-0.7); Eosinophils % (A) 1 %; HCT 23.8 % (34.0-46.0); HGB 7.8 gm/dL (11.4-16.0); Lymphocytes # (A) 4.3 k/uL (1.0-4.8); Lymphocytes % (A) 39 %; MCH 30.9 pg (25.0-35.0); MCHC 32.8 g/dL (31.0-37.0); MCV 94.3 fL (80.0-100.0); Mean Platelet Volume 7.7; Monocytes # (A) 0.5 k/uL (0-1.0); Monocytes % (A) 5 %; Neutrophils # (A) 5.5 k/uL (1.3-7.7); Neutrophils % (A) 51 %; Platelet Count 296 k/uL (150-450); RBC 2.53 m/uL (3.80-5.40); RDW 14.2 % (11.5-15.5); WBC 10.8 k/uL (3.8-10.6)
[2020-03-12] MEDS: LEVOFLOXACIN 750MG-D5W PMX 750 MG in DEXTROSE/WATER 1 150ML.BAG IVPB SCH (18:15)
[2020-03-12 20:17] VITALS: RESP 16
[2020-03-12] MEDS: ONDANSETRON 4 MG/2 ML VIAL IVP PRN (20:34)
[2020-03-13] MEDS: MORPHINE SULFATE 2 MG/ML SYRINGE IVP PRN ×3 (00:39→05:55)
[2020-03-13] MEDS: HYDROcodone/APAP 7.5-325MG 1 EACH TAB PO PRN ×2 (05:18→11:10)
[2020-03-13] MEDS: PANTOPRAZOLE 40 MG TABLET PO SCH (05:56)
[2020-03-13] MEDS: FERROUS SULFATE 325 MG TAB PO SCH (05:56)
[2020-03-13] MEDS ORDERED: ALPRAZolam 0.25 MG TAB PO PRN (06:00)
[2020-03-13 07:12] LABS: Basophils # (A) 0.1 k/uL (0-0.2); Basophils % (A) 1 %; Eosinophils # (A) 0.1 k/uL (0-0.7); Eosinophils % (A) 1 %; HCT 22.9 % (34.0-46.0); HGB 7.7 gm/dL (11.4-16.0); Lymphocytes # (A) 3.8 k/uL (1.0-4.8); Lymphocytes % (A) 44 %; MCH 31.2 pg (25.0-35.0); MCHC 33.6 g/dL (31.0-37.0); MCV 92.9 fL (80.0-100.0); Mean Platelet Volume 8.3; Monocytes # (A) 0.4 k/uL (0-1.0); Monocytes % (A) 5 %; Neutrophils # (A) 4.1 k/uL (1.3-7.7); Neutrophils % (A) 47 %; Platelet Count 292 k/uL (150-450); RBC 2.47 m/uL (3.80-5.40); RDW 14.5 % (11.5-15.5); WBC 8.7 k/uL (3.8-10.6)
[2020-03-13] MEDS: DOCUSATE 100 MG CAP PO SCH (08:05)
[2020-03-13] MEDS: metroNIDAZOLE-NS PMX 500 MG in SALINE 1 100ML.BAG IVPB SCH (08:06)
[2020-03-13 08:13] VITALS: BP 101/70; PULSE 70; TEMP 98.1
[2020-03-13] MEDS: SODIUM CHLORIDE 0.9% 1,000 ML IV SCH (11:13)
--- NOTE | 2020-03-13 12:23 | FL ---
Fluoroscopy HISTORY: Right ureteral stone 49 seconds fluoroscopy time supplied to the referring clinician. 3 intraoperative C-arm images docum ent the procedure. See dictated report from urology.
--- NOTE | 2020-03-13 12:40 | P.PN ---
Subjective Progress Note Date: 03/13/20 S/P right ureteroscopy, doing well, tolerating a diet. Denies any flank pain or gross hematuria Objective - Vital Signs Vital signs: Vital Signs Temp 98.1 F 03/13/20 08:00 Pulse 70 03/13/20 08:00 Resp 16 03/13/20 08:00 BP 101/70 03/13/20 08:00 Pulse Ox 96 03/13/20 08:00 Intake & Output 03/12/20 03/13/20 03/13/20 18:59 06:59 18:59 Intake Total 310 Output Total 400 Balance -90 Intake: Blood Product 310 Rc As-1 Unit 310 [id number] Output: Urine 400 Other: Voiding Method Toilet # Voids 2 1 1 - Constitutional General appearance: Present: no acute distress - Psychiatric Psychiatric: Present: A&O x's 3, appropriate affect - Labs CBC & Chem 7: 03/13/20 06:55 03/10/20 05:05 Labs: Abnormal Lab Results - Last 24 Hours (Table) 03/12/20 03/12/20 03/13/20 Range/Units 08:34 14:15 06:55 WBC 10.8 H (3.8-10.6) k/uL RBC 2.53 L 2.47 L (3.80-5.40) m/uL Hgb 7.8 L 7.7 L (11.4-16.0) gm/dL Hct 23.8 L 22.9 L (34.0-46.0) % Crossmatch See Detail Assessment and Plan Assessment: Excisional female admitted to the hospital with GI bleed, CT on presentation showed a 3 mm right-sided proximal stone,S/P right ureteroscopy on 03/11. doing Well today Plan: -Ok for discharge from urology standpoint, F/U in one weeks for stent removal
[2020-03-13] MEDS ORDERED: LEVOFLOXACIN 750 MG TAB PO SCH (19:00)
--- NOTE | 2020-03-13 19:54 | P.DS ---
Providers Date of admission: 03/08/20 18:09 Attending physician: Lester Tapia MD Consults: 03/08/20 18:09 Consult Physician Routine Consulting Provider: Mahendra Mckinley Consult Reason/Comments: ureteral stone Do you want consulting provider notified?: Yes Consult Physician Stat Consulting Provider: Ephraim Blas Consult Reason/Comments: ICU mgmt Do you want consulting provider notified?: Already Contacted Primary care physician: Donato To Hospital Course: Diagnoses: Acute GI bleed secondary to antral ulcer Acute blood loss anemia Acute colitis, with CT of the abdomen and pelvis showing possible mild colitis with proximal sigmoid colon narrowing Right ureteral calculus, 3 mm with moderate right hydronephrosis. S/P cystoscopy, ureteroscopy, lithotripsy, stent placement, pyelogram and stent placement [on 03/11] History of GERD Nicotine abuse Hospital course: This is a pleasant 54 years old female with past medical history of GERD and musculoskeletal disorder. She smokes cigarettes 1-2 cigarettes occasionally. She is a patient of Dr. Sewell. She presents mainly because of low back pain which started Saturday about 3 days earlier, radiating to the right flank, associated with black stool and sweating for 2 hours associated with dizziness.hemoglobin dropped to 11 down to 7.1.Hemoccult test of the stool is positive.CT of the abdomen and pelvis with contrast showing 3 mm right ureter calculus with hydronephrosis. Diffuse mild colonic wall thickening, suspicious for colitis with focal narrowing in the proximal sigmoid colon narrowing, patient is started on levofloxacin and Flagyl. Her abdominal pain resolved. No diarrhea. GI team evaluated the patient,she underwent EGD today showing non- bleeding antral ulcer and biopsy was taken , while sigmoidoscopy showed normal a ppearing mucose with little diverticulosis. After on her hemoglobin dropped to 6.4, she received 20 of blood transfusion and her hemoglobin remained stable 7.8-7.7 Urologist also evaluated the patient for her right ureteral stone and right hydronephrosis, then urologist took the patient to OR for cystoscopy, ureteroscopy, lithotripsy, stent placement, pyelogram and stent placement. Postprocedure patient was asymptomatic, no abdominal pain, no flank pain of back pain. No urinary symptoms of dysuria, no abdominal complaints, no change in bowel habits. No more dizziness which is resolved, no other symptoms like no fever or chest pain or dyspnea. Patient returned to baseline and she was so eager the last today to be discharged. Patient will be discharged on short course of oral antibiotics of Flagyl and Levaquin as well as Protonix twice daily. Pain management per [place] which patient has at home and Tylenol, patient was advised extensively to avoid NSAIDs like Motrin, Naprosyn etc. Also patient was instructed to follow up with urologist in 1 week to remove the stent, And she was advised to follow up with inspector set up and lay out for the result of her stomach biopsy, risks including but not limiting to cancer are explained for the patient and she verbalized understanding and acceptance to do the follow-up. Also she was instructed to get colonoscopy in 4-6 weeks per GI team recommend bushra and she agrees Problems and management plan were discussed with the patient and he verbalized understanding and acceptance Patient was found stable and can be discharged home however he needs follow-up as an outpatient. Patient was instructed to follow up with PCP Dr. Melendez within one week and patient agrees with the appointments made for her with Dr. Melendez on 03/21 and states she will follow up. Also I called and discussed the case with Dr. Melendez including the recommendation for GI follow-up for stomach biopsy and colonoscopy and he will follow up for stent removal and he kindly took note of these Patient also was instructed to follow up with urologist in 1 week, and GI doctor RAFFY in 2 weeks and she agrees to call and make appointments for herself as the office as a close today on week and Physical exam Gen: patient is a AAOx3, no distress CVS: S1-S2, RRR, no murmur Lungs: B/L CTA, no wheezing Abdomen: soft, no distention, no tenderness, positive bowel sounds Extremity: no leg edema or induration Time spent more than 35 minutes Patient Condition at Discharge: Fair Plan - Discharge Summary Discharge Rx Participant: No New Discharge Prescriptions: New Docusate [Colace] 100 mg PO BID PRN 5 Days #10 cap PRN Reason: Constipation metroNIDAZOLE [Flagyl] 500 mg PO TID 7 Days #21 tab Ferrous Sulfate [Iron (65 MG Elemental)] 325 mg PO BID-W/MEALS #30 tab Levofloxacin [Levaquin] 750 mg PO DAILY@1900 7 Days #7 tab Pantoprazole [Protonix] 40 mg PO AC-BID #60 tablet.dr Continue HYDROcodone/APAP 7.5-325MG [[place] 7.5-325] 1 tab PO TID Discharge Medication List HYDROcodone/APAP 7.5-325MG [[place] 7.5-325] 1 tab PO TID 03/08/20 [History] Docusate [Colace] 100 mg PO BID PRN 5 Days #10 cap 03/13/20 [Rx] Ferrous Sulfate [Iron (65 MG Elemental)] 325 mg PO BID-W/MEALS #30 tab 03/13/20 [Rx] Levofloxacin [Levaquin] 750 mg PO DAILY@1900 7 Days #7 tab 03/13/20 [Rx] Pantoprazole [Protonix] 40 mg PO AC-BID #60 tablet. 03/13/20 [Rx] metroNIDAZOLE [Flagyl] 500 mg PO TID 7 Days #21 tab 03/13/20 [Rx] Follow up Appointment(s)/Referral(s): Zuleika Sewell MD [Primary Care Provider] - 03/21/20 10:30 am Mahendra Mckinley MD [STAFF PHYSICIAN] - 1 Week (Follow-up in 1 week for possible removal of your stent) Mikal Nevarez MD [STAFF PHYSICIAN] - 2 Weeks (Will need colonoscopy in 4-6 weeks Follow-up stomach biopsy results) Patient Instructions/Handouts: Heart Healthy Diet (DC), Return to Work Instructions (DC), Ureteral Stent Placement (DC) Activity/Diet/Wound Care/Special Instructions: heart healthy diet activity is restricted till you see your doctor any concerns please notify your dr, any severe symptoms please return to er avoid NSAIDs ,like no motrin, mobic, naproxen , aspirin, toradol or other . you can use norco or tylenol for pain control Discharge Disposition: HOME SELF-CARE
== END 2020-03-13 12:59 | disposition home or self-care (01) | DRG 988 ==
LOC: EC 15:06 → 2SICU 18:09 → 6PED 03-11 00:34
PROVIDERS: ADMIT Internal Medicine; ATTEND Internal Medicine
PROC: 0TJB8ZZ Inspection of Bladder, Via Natural or Artificial Opening Endoscopic (ICD-10-PCS; 2020-03-11)
PROC: 0DB78ZX Excision of Stomach, Pylorus, Via Natural or Artificial Opening Endoscopic, Diagnostic (ICD-10-PCS; principal; 2020-03-11 16:00)
PROC: 0TC68ZZ Extirpation of Matter from Right Ureter, Via Natural or Artificial Opening Endoscopic (ICD-10-PCS; 2020-03-11 16:00)
PROC: 0DJD8ZZ Inspection of Lower Intestinal Tract, Via Natural or Artificial Opening Endoscopic (ICD-10-PCS; 2020-03-11 16:00)
DX: K25.0 Acute gastric ulcer with hemorrhage (principal); D62 Acute posthemorrhagic anemia; N13.2 Hydronephrosis with renal and ureteral calculous obstruction; E87.2 Acidosis; E87.8 Other disorders of electrolyte and fluid balance, not elsewhere classified; K52.9 Noninfective gastroenteritis and colitis, unspecified; I95.9 Hypotension, unspecified; F17.210 Nicotine dependence, cigarettes, uncomplicated; K44.9 Diaphragmatic hernia without obstruction or gangrene; G89.29 Other chronic pain; K57.30 Diverticulosis of large intestine without perforation or abscess without bleeding; N32.89 Other specified disorders of bladder; K21.9 Gastro-esophageal reflux disease without esophagitis; R55 Syncope and collapse; K29.50 Unspecified chronic gastritis without bleeding; Z88.0 Allergy status to penicillin; Z80.1 Family history of malignant neoplasm of trachea, bronchus and lung; Z79.899 Other long term (current) drug therapy; Z98.890 Other specified postprocedural states; Z80.9 Family history of malignant neoplasm, unspecified
CPT/HCPCS: 36415; 43239; 45330; 74177; 74420; 80048; 80053; 81003; 82272; 82365; 83605; 83690; 85025; 85610; 85730; 86850; 86900; 86901; 86920; 88305; 93005; 96361; 96374; 96375; 96376; 99285

== ENCOUNTER → 2020-12-15 | Outpatient (CLI) | payer OTHER | END | disposition home or self-care (01) | LOC: PNWHC3 08:47 | PROVIDERS: ATTEND Specialist | DX: Z53.9 Procedure and treatment not carried out, unspecified reason (principal) ==

== ENCOUNTER → 2022-01-03 | Outpatient (CLI) | payer OTHER ==
--- NOTE | 2022-01-03 15:18 | CT ---
EXAMINATION TYPE: CT soft tissue neck wo con DATE OF EXAM: 01/03/2022 COMPARISON: 11/17/18 HISTORY: GERD, sore throat and poss thrush. CT DLP: 307.[address] of the neck was performed from the skull base through the lung apices. Lack of contras t is limiting. AIRWAY: The supraglottic, glottic, and subglottic portions of the airway appear patent and free of mass. SALIVARY GLANDS: The submandibular and parotid glands are free of mass or inflammatory process. THYROID GLAND: No nodules or masses seen. LYMPH NODES: No adenopathy seen greater than 1cm. LUNG APICES: No nodule or mass is seen. OTHER: Vascular structures are patent. No significant degenerative change of the cervical spine. N o abscess seen. IMPRESSION: No discrete abnormality appreciated at this time.
== END | disposition home or self-care (01) ==
LOC: RADCTMAIN 14:24
PROVIDERS: ATTEND Family Medicine
DX: K21.9 Gastro-esophageal reflux disease without esophagitis (principal); J02.9 Acute pharyngitis, unspecified; M54.2 Cervicalgia
CPT/HCPCS: 70490

== ENCOUNTER → 2023-01-30 | Outpatient (CLI) | payer OTHER ==
--- NOTE | 2023-01-30 12:47 | P.PAINPG ---
PQRS Measure Charge Sheet Comment: HISTORY OF PRESENT ILLNESS: A 57 yr old female as a referral from Dr Pryor presents today w severe and chronic neck pain secondary to DDD, spondylosis and facet arthropathy without myelopathy for evaluation. Pt states pain level is provoked at 8/10 in intensity, constant, localized in the cervical spine, predominantly axial, stabbing in character w occasional shooting pain towards the BL shoulders. Pain is provoked by over activity and lifting. Pain is alleviated by PT years ago, injections int eh past, heat, medications ([place] 10/325mg #120), topical, repositioning and rest. Pt wanted narcotic medications and procedures to the neck, thoracic, lumbar spine and hips done at the same time, which is not possible as there is prior authorization required for each. Also, MME would have to be reduced if pt were to cancel her narcotic agreement w Dr Dan. Cervical disability pain score at 24. PMH: OA, GERD PSH: C- section, Cystoscopy/Uteroscopy/ Lithotripsy (2020), L Elbow Surgery, R Hand Surgery SH: Daily tobacco use, Occasional ETOH use, No illicit drug use FH: Fa- Lung CA. Mo- DJD All: See list Meds: See list REVIEW OF ORGAN SYSTEMS: CONSTITUTIONAL: No fevers or chills. No recent weight loss. NEUROLOGICAL: + numbness and tingling along the distal extremities. No seizure disorders or headaches. MUSCULOSKELETAL: + pain PSYCHIATRIC: Denies current depression or suicidal thoughts. Physical Examinations : Constitutional : Cooperative , not in acute distress . Neurologic : Cranial nerve II to XII intact. No focal neurological deficits. Psychiatric : alert & oriented x 3. Matching mood & appropriate affect. Judgment & insight intact. Musculoskeletal : Cervical Spine Motor strength in the deltoid and biceps: Normal right side. Normal Left side Motor strength biceps and the wrist extensors: Normal right side . Normal left side Motor strength in the triceps muscle: Normal right side. Normal left side Deep tendon reflexes: Normal at the biceps. Normal at Brachioradialis. Normal at triceps Vertebral body tenderness to deep palpation over C7 Cervical facet loading test: positive bilaterally Spurling test: positive bilaterally Neck distraction test: positive bilaterally Angus sign: positive bilaterally Lumbar spine Motor strength lower extremities ,thigh and legs 5/5 Right side , 5/5 Left side Deep tendon reflexes : Normal Knee Jerk. Normal Ankle Jerk Vertebral body tenderness over Duenas Test positive Lumbar facet Loading Test: positive Right / positive Left Range of motion of the lumbar spine Flexion 30 degrees, extension 10 degrees Straight Leg Raise test: Left/ Right positive at degree Kaylie test: positive right / positive left. Severe tenderness over the Sacroiliac joint on the Right / Left sides Gaenslen test: positive bilaterally Seated flexion test: positive bilaterally. Sacral spine : Severe tenderness over the Sacroiliac joint: right side / left side Range of motion: Flexion of the lumbar spine <60 degrees Range of motion: Extension of the lumbar spine <20 degrees Gaenslen's Test positive Kaylie test: positive right side / left side Thigh Thrust Test Sacral Thrust Test Imaging: CT noncontrast soft tissue of the cervical spine from 01/03/22 reviewed Assessment/ Plan : Cervical DDD RTC on an as needed basis. All questions answered. I have spent greater than 30 minutes on patient care today. Dr Roman was available by phone for the evaluation of this patient. The time was used to review the medical records including relevant urine studies and Prescription history (MAPs), review of the available imaging, evaluation and examination of the patient, coordination of care with the medical staff and if applicable referring physicians, as well as creation of the medical record PQRS Narrative: Smoking Status Current some day smoker Hx Alcohol Use (MH) Yes Home Medications: Ambulatory Orders HYDROcodone/APAP 7.5-325MG [[place] 7.5-325] 1 tab PO TID PRN 03/08/20 Cetirizine HCl [Zyrtec] 10 mg PO DAILY PRN 12/13/20 Omeprazole [PriLOSEC] 20 mg PO BID 12/13/20 Controlled Substance Measures - Controlled Substance Measures Is patient prescribed a controlled substance at discharge?: No
[2023-01-30 13:04] VITALS: BP 123/87; PULSE 89; RESP 16; TEMP 97.3
== END ==
LOC: PNWHC3 12:05
PROVIDERS: ATTEND Specialist
DX: M50.20 Other cervical disc displacement, unspecified cervical region (principal); F17.200 Nicotine dependence, unspecified, uncomplicated; M54.50 Low back pain, unspecified; Z88.0 Allergy status to penicillin
CPT/HCPCS: 99211

== ENCOUNTER 2023-02-13 17:28 | Emergency (ER) | payer OTHER ==
[2023-02-13] MEDS ORDERED: SODIUM CHLORIDE 0.9% 1,000 ML IV STA ×2 (18:23)
[2023-02-13] MEDS ORDERED: HYDROmorphone 1 MG/ML 1 ML SYRINGE IVP STA ×2 (18:23→21:03)
[2023-02-13] MEDS ORDERED: ONDANSETRON 4 MG/2 ML VIAL IVP STA (18:23)
[2023-02-13] MEDS ORDERED: KETOROLAC 15 MG/ML 1 ML VIAL IVP STA (18:23)
[2023-02-13 19:14] LABS: Basophils # (A) 0.1 k/uL (0-0.2); Basophils % (A) 1 %; Eosinophils # (A) 0.1 k/uL (0-0.7); Eosinophils % (A) 1 %; HCT 38.1 % (34.0-46.0); HGB 12.4 gm/dL (11.4-16.0); Lymphocytes # (A) 3.5 k/uL (1.0-4.8); Lymphocytes % (A) 28 %; MCH 30.5 pg (25.0-35.0); MCHC 32.5 g/dL (31.0-37.0); MCV 93.8 fL (80.0-100.0); Mean Platelet Volume 8.2; Monocytes # (A) 0.6 k/uL (0-1.0); Monocytes % (A) 5 %; Neutrophils % (A) 63 %; Platelet Count 396 k/uL (150-450); RBC 4.06 m/uL (3.80-5.40); RDW 14.1 % (11.5-15.5); WBC 12.7 k/uL (3.8-10.6)
--- NOTE | 2023-02-13 19:21 | ED ---
Abdominal Pain HPI - General Chief Complaint: Abdominal Pain Stated Complaint: back pain Time Seen by Provider: 02/13/23 18:23 Source: patient, EMS, RN notes reviewed, old records reviewed Mode of arrival: EMS Limitations: no limitations - History of Present Illness Initial Comments: This is a 57-year-old female to the emergency department for evaluation of severe severe and sudden onset of right-sided flank pain right-sided abdominal pain right-sided back pain with nausea and shaking. Patient is severely anxious secondary to significance of the pain. Patient's pain is difficult to control at home which she presents here for evaluation of uncontrolled abdominal pain with history of kidney stones. MD Complaint: abdominal pain, flank pain, other (Right-sided severe pain) -: hour(s) Location: RLQ, suprapubic, R flank Radiation: R flank Migration to: suprapubic Severity: moderate, severe Severity scale (1-10): 9 Quality: stabbing, sharp Consistency: constant Improves With: nothing Worsens With: nothing Associated Symptoms: nausea, vomiting Treatments Prior to Arrival: other (0) - Related Data Home Medications Medication Instructions Recorded Confirmed Cetirizine HCl [Zyrtec] 10 mg PO DAILY PRN 12/13/20 02/15/23 Omeprazole [PriLOSEC] 20 mg PO BID 12/13/20 02/15/23 Amoxicillin 500 mg PO DAILY 02/15/23 02/15/23 Ketorolac [Toradol] 10 mg PO Q6HR PRN 02/15/23 02/15/23 Ondansetron [Zofran] 4 mg PO Q8HR PRN 02/15/23 02/15/23 oxyCODONE HCL [OxyIR] 5 mg PO Q6H PRN 02/15/23 02/15/23 Previous Rx's Medication Instructions Recorded Ketorolac [Toradol] 10 mg PO Q6HR PRN #10 tab 02/19/23 Allergies Allergy/AdvReac Type Severity Reaction Status Date / Time Penicillins Allergy Nausea & Verified 02/15/23 09:06 Vomiting & Diarrhea,"passed out" Review of Systems ROS Statement: Those systems with pertinent positive or pertinent negative responses have been documented in the HPI. ROS Other: All systems not noted in ROS Statement are negative. Past Medical History Past Medical History: GERD/Reflux, Musculoskeletal Disorder Additional Past Medical History / Comment(s): bleeding ulcer Mar 2020,"clicking and popping in neck area very painful,rt shoulder very painfu,and lower back radiating to rt hip painl" History of Any Multi-Drug Resistant Organisms: None Reported Past Surgical History: Orthopedic Surgery Additional Past Surgical History / Comment(s): lt elbow,,rt hand surgery Past Anesthesia/Blood Transfusion Reactions: Motion Sickness, Postoperative Nausea & Vomiting (PONV) Past Psychological History: No Psychological Hx Reported Smoking Status: Current some day smoker Past Alcohol Use History: Occasional Past Drug Use History: None Reported - Past Family History Father Family Medical History: Cancer Additional Family Medical History / Comment(s): lung CA Mother Family Medical History: Osteoarthritis (OA) Additional Family Medical History / Comment(s): bone degenerating disease-multiple jt replacements General Exam Limitations: no limitations General appearance: alert, in no apparent distress, anxious Head exam: Present: atraumatic, normocephalic, normal inspection Eye exam: Present: normal appearance, PERRL, EOMI. Absent: scleral icterus, conjunctival injection, periorbital swelling ENT exam: Present: normal exam, mucous membranes moist Neck exam: Present: normal inspection. Absent: tenderness, meningismus, ly mphadenopathy Respiratory exam: Present: normal lung sounds bilaterally. Absent: respiratory distress, wheezes, rales, rhonchi, stridor Cardiovascular Exam: Present: regular rate, normal rhythm, normal heart sounds. Absent: systolic murmur, diastolic murmur, rubs, gallop, clicks GI/Abdominal exam: Present: soft, normal bowel sounds. Absent: distended, tenderness, guarding, rebound, rigid Extremities exam: Present: normal inspection, full ROM, normal capillary refill. Absent: tenderness, pedal edema, joint swelling, calf tenderness Back exam: Present: normal inspection Neurological exam: Present: alert, oriented X3, CN II-XII intact Psychiatric exam: Present: normal affect, normal mood Skin exam: Present: warm, dry, intact, normal color. Absent: rash Course Vital Signs 02/13/23 02/13/23 02/13/23 17:51 19:03 20:00 Temperature 97.4 F L Pulse Rate 79 72 62 Respiratory 20 20 22 Rate Blood Pressure 146/106 148/100 125/85 O2 Sat by Pulse 97 97 98 Oximetry 02/13/23 02/13/23 02/14/23 21:00 22:13 00:48 Temperature 98.1 F Pulse Rate 83 75 73 Respiratory 20 18 16 Rate Blood Pressure 152/80 137/89 124/79 O2 Sat by Pulse 94 L 97 98 Oximetry - Reevaluation(s) Reevaluation #1: Medical records reviewed Reevaluation #2: Patient symptoms are improved Reevaluation #3: Patient informed of results questions answered Reevaluation #4: Was pt. sent in by a medical professional or institution (, [facility], [employer], urgent care, hospital, or half-way...) When possible be specific @ -no Did you speak to anyone other than the patient for history (EMS, parent, family, police, friend...)? What history was obtained from this source @ -no Did you review nursing and triage notes (agree or disagree)? Why? @ -agree Are old charts reviewed (outside hosp., previous admission, EMS record, old EKG, old radiological studies, urgent care reports/EKG's, half-way records)? Report findings @ -yes Differential Diagnosis (chest pain, altered mental status, abdominal pain women, abdominal pain men, vaginal bleeding, weakness, fever, dyspnea, syncope, headache, dizziness, GI bleed, back pain, seizure, CVA, palpatations, mental health, musculoskeletal)? @ -prior EKG interpreted by me (3pts min.). @ -no X-rays interpreted by me (1pt min.). @ -no CT interpreted by me (1pt min.). @ -yes positive for right-sided kidney stone U/S interpreted by me (1pt. min.). @ -no What testing was considered but not performed or refused? (CT, X-rays, U/S, labs)? Why? @ -none What meds were considered but not given or refused? Why? @ -none Did you discuss the management of the patient with other professionals (professionals i.e. [facility] Lopes, [employer], lab, RT, psych nurse, social welfare clerk, supervisor carding, teacher, police officer crime prevention, family preservation caseworker)? Give summary @ -no Was smoking cessation discussed for >3mins.? @ -no Was critical care preformed (if so, how long)? @ -no Were there social determinants of health that impacted care today? How? (Homelessness, low income, unemployed, alcoholism, drug addiction, transportation, low edu. Level, literacy, decrease access to med. care, alf, rehab)? @ -none Was there de-escalation of care discussed even if they declined (Discuss DNR or withdrawal of care, Hospice)? DNR status @ -no What co-morbidities impacted this encounter? (DM, HTN, Smoking, COPD, CAD, Cancer, CVA, ARF, Chemo, Hep., AIDS, mental health diagnosis, sleep apnea, morbid obesity)? @ -none Was patient admitted / discharged? Hospital course, mention meds given and route, prescriptions, significant lab abnormalities, going to OR and other pertinent info. @ - 57 female with right onset abdominal pain sudden onset of right-sided abdominal pain positive right-sided kidney stone. Patient's pain is well- controlled can be discharged home Discharge Undiagnosed new problem with uncertain prognosis? @ -no Drug Therapy requiring intensive monitoring for toxicity (Heparin, Nitro, Insulin, Cardizem)? @ -no Were any procedures done? @ -no Diagnosis/symptom? @ -Right ureteral calculus Acute, or Chronic, or Acute on Chronic? @ -Acute Uncomplicated (without systemic symptoms) or Complicated (systemic symptoms)? @ -Complicated Side effects of treatment? @ -no Exacerbation, Progression, or Severe Exacerbation? @ -exacerbation Poses a threat to life or bodily function? How? (Chest pain, USA, DC, pneumonia, PE, COPD, DKA, ARF, appy, cholecystitis, CVA, Diverticulitis, Homicidal, Suicidal, threat to staff... and all critical care pts) @ -no Reevaluation #5: Differential Abdominal Pain Women: Appendicitis, Cholecystitis, diverticulosis, ischemic bowel, pancreatitis, hepatitis, UTI, gastroenteritis, AAA, incarcerated hernia, bowel obstruction, constipation, inflammatory bowel, hepatitis, peptic ulcer disease, splenic inf arction, perforated viscus, vulvitis, ovarian torsion, PID, kidney stone, placenta abruption, this is not meant to be an all-inclusive list Differential Back Pain: Strain, zoster, cauda equina syndrome, epidural abscess, vertebral osteomyelitis, discitis, fracture, subluxation, disc herniation, DJD, spinal stenosis, dissection, AAA, pancreatitis, peptic ulcer disease, pyelonephritis, kidney stone, this is not meant to be an all-inclusive list. Medical Decision Making - Medical Decision Making 57 female with right onset abdominal pain sudden onset of right-sided abdominal pain positive right-sided kidney stone. Patient's pain is well-controlled can be discharged home - Lab Data Result diagrams: 02/13/23 18:45 02/13/23 18:45 Lab Results 02/13/23 02/13/23 02/13/23 Range/Units 18:45 18:45 18:45 WBC 12.7 H (3.8-10.6) k/uL RBC 4.06 (3.80-5.40) m/uL Hgb 12.4 (11.4-16.0) gm/dL Hct 38.1 (34.0-46.0) % MCV 93.8 (80.0-100.0) fL MCH 30.5 (25.0-35.0) pg MCHC 32.5 (31.0-37.0) g/dL RDW 14.1 (11.5-15.5) % Plt Count 396 (150-450) k/uL MPV 8.2 Neutrophils % 63 % Lymphocytes % 28 % Monocytes % 5 % Eosinophils % 1 % Basophils % 1 % Neutrophils # 8.0 H (1.3-7.7) k/uL Lymphocytes # 3.5 (1.0-4.8) k/uL Monocytes # 0.6 (0-1.0) k/uL Eosinophils # 0.1 (0-0.7) k/uL Basophils # 0.1 (0-0.2) k/uL Sodium 141 (137-145) mmol/L Potassium 3.9 (3.5-5.1) mmol/L Chloride 110 H (98-107) mmol/L Carbon Dioxide 17 L (22-30) mmol/L Anion Gap 14 mmol/L BUN 9 (7-17) mg/dL Creatinine 0.74 (0.52-1.04) mg/dL Est GFR (CKD-EPI)AfAm >90 (>60 ml/min/1.73 sqM) Est GFR (CKD-EPI)NonAf 90 (>60 ml/min/1.73 sqM) Glucose 80 (74-99) mg/dL Plasma Lactic Acid Dorian 1.9 (0.7-2.0) mmol/L Calcium 9.3 (8.4-10.2) mg/dL Total Bilirubin 0.7 (0.2-1.3) mg/dL AST 23 (14-36) U/L ALT 12 (4-34) U/L Alkaline Phosphatase 58 (38-126) U/L Total Protein 7.0 (6.3-8.2) g/dL Albumin 4.1 (3.5-5.0) g/dL Amylase 47 (30-110) U/L Lipase 41 (23-300) U/L Urine Color Urine Appearance (Clear) Urine pH (5.0-8.0) Ur Specific [place] (1.001-1.035) Urine Protein (Negative) Urine Glucose (UA) (Negative) Urine Ketones (Negative) Urine Blood (Negative) Urine Nitrite (Negative) Urine Bilirubin (Negative) Urine Urobilinogen (<2.0) mg/dL Ur Leukocyte Esterase (Negative) Urine RBC (0-5) /hpf Urine WBC (0-5) /hpf Ur Squamous Epith Cells (0-4) /hpf Uric Acid Crystals (None) /hpf Urine Bacteria (None) /hpf Hyaline Casts (0-2) /lpf Urine Mucus (None) /hpf 02/13/23 Range/Units 23:10 WBC (3.8-10.6) k/uL RBC (3.80-5.40) m/uL Hgb (11.4-16.0) gm/dL Hct (34.0-46.0) % MCV (80.0-100.0) fL MCH (25.0-35.0) pg MCHC (31.0-37.0) g/dL RDW (11.5-15.5) % Plt Count (150-450) k/uL MPV Neutrophils % % Lymphocytes % % Monocytes % % Eosinophils % % Basophils % % Neutrophils # (1.3-7.7) k/uL Lymphocytes # (1.0-4.8) k/uL Monocytes # (0-1.0) k/uL Eosinophils # (0-0.7) k/uL Basophils # (0-0.2) k/uL Sodium (137-145) mmol/L Potassium (3.5-5.1) mmol/L Chloride (98-107) mmol/L Carbon Dioxide (22-30) mmol/L Anion Gap mmol/L BUN (7-17) mg/dL Creatinine (0.52-1.04) mg/dL Est GFR (CKD-EPI)AfAm (>60 ml/min/1.73 sqM) Est GFR (CKD-EPI)NonAf (>60 ml/min/1.73 sqM) Glucose (74-99) mg/dL Plasma Lactic Acid Dorian (0.7-2.0) mmol/L Calcium (8.4-10.2) mg/dL Total Bilirubin (0.2-1.3) mg/dL AST (14-36) U/L ALT (4-34) U/L Alkaline Phosphatase (38-126) U/L Total Protein (6.3-8.2) g/dL Albumin (3.5-5.0) g/dL Amylase (30-110) U/L Lipase (23-300) U/L Urine Color Light Yellow Urine Appearance Cloudy H (Clear) Urine pH 6.0 (5.0-8.0) Ur Specific [place] 1.013 (1.001-1.035) Urine Protein Trace H (Negative) Urine Glucose (UA) Negative (Negative) Urine Ketones Negative (Negative) Urine Blood Moderate H (Negative) Urine Nitrite Negative (Negative) Urine Bilirubin Negative (Negative) Urine Urobilinogen <2.0 (<2.0) mg/dL Ur Leukocyte Esterase Negative (Negative) Urine RBC 57 H (0-5) /hpf Urine WBC 7 H (0-5) /hpf Ur Squamous Epith Cells 1 (0-4) /hpf Uric Acid Crystals Occasional H (None) /hpf Urine Bacteria Rare H (None) /hpf Hyaline Casts 3 H (0-2) /lpf Urine Mucus Many H (None) /hpf - Radiology Data Radiology results: report reviewed (CT of the abdomen and pelvis is positive for kidney stone), image reviewed Disposition Clinical Impression: Right ureteral calculus Disposition: HOME SELF-CARE Condition: Good Instructions (If sedation given, give patient instructions): Kidney Stones (ED) Is patient prescribed a controlled substance at d/c from ED?: No Referrals: Elías Covington MD [STAFF PHYSICIAN] - 1-2 days Time of Disposition: 21:30
[2023-02-13 19:26] LABS: African American GFR (CKD) >90 (>60 ml/min/1.73 sqM); Albumin 4.1 g/dL (3.5-5.0); Amylase 47 U/L (30-110); Blood Urea Nitrogen 9 mg/dL (7-17); Carbon Dioxide 17 mmol/L (22-30); Glucose 80 mg/dL (74-99); Non-African American GFR(CKD) 90 (>60 ml/min/1.73 sqM)
[2023-02-13 19:46] LABS: ALT 12 U/L (4-34); Anion Gap 14 mmol/L; Calcium 9.3 mg/dL (8.4-10.2); Chloride 110 mmol/L (98-107); Lipase 41 U/L (23-300); Sodium 141 mmol/L (137-145); Total Bilirubin 0.7 mg/dL (0.2-1.3)
[2023-02-13 19:52] LABS: AST 23 U/L (14-36); Alkaline Phosphatase 58 U/L (38-126); Potassium 3.9 mmol/L (3.5-5.1)
[2023-02-13] MEDS ORDERED: diphenhydrAMINE 50 MG/ML 1 ML VIAL IVP STA (21:03)
[2023-02-13] MEDS ORDERED: PROCHLORPERAZINE INJ 10 MG/2 ML VIAL IVP STA (21:03)
--- NOTE | 2023-02-13 21:07 | CT ---
EXAMINATION TYPE: CT abdomen pelvis wo con DATE OF EXAM: 02/13/2023 COMPARISON: 03/08/2020 HISTORY: Right side abdominal pain, n/v CT DLP: 359.3 mGycm Examination of the solid and hollow viscera is limited given the lack of contrast. FINDINGS: LUNG BASES: No evidence for nodule. No evidence for infiltrate. LIVER/GB: The gallbladder is unremarkable. No space-occupying hepatic lesion. PANCREAS: No pancreatic mass identified. No inflammatory process seen. SPLEEN: No evidence for splenomegaly. No intrasplenic lesions seen. ADRENALS: No adrenal nodules identified. No evidence for thickening. KIDNEYS: 6 mm obstructing calculus mid right ureter resulting in moderate right-sided hydronephrosis. An obstructing 2 mm calculus mid pole right kidney. 3 mm calculus lower pole left kidney as well as upper pole left kidney mild fullness left renal collecting system without obstructing calculus. A steffaine al masses seen. Urinary bladder is unremarkable. BOWEL: Appendix has a normal appearance. No evidence of bowel obstruction. No inflammatory process. Lymph nodes: No evidence for adenopathy greater than 1 cm. Abdominal aorta: Atheromatous changes seen. No evidence for aneurysm. Genital organs: No significant abnormality. Other: No significant abnormality. IMPRESSION: 6 mm obstructing calculus mid right ureter resulting in moderate right-sided hydronephrosis. An obstr ucting 2 mm calculus mid pole right kidney. 3 mm calculus lower pole left kidney as well as upper kirsten e left kidney mild fullness left renal collecting system without obstructing calculus.
[2023-02-13] MEDS ORDERED: TAMSULOSIN 0.4 MG CAP.ER.24H PO STA (21:38)
[2023-02-13] MEDS ORDERED: IBUPROFEN 600 MG STARTER PACK 4 TAB BTL PO STA (21:38)
[2023-02-13] MEDS ORDERED: ONDANSETRON 4 MG ODT STARTER PACK 2 TAB BTL PO STA (21:38)
[2023-02-13] MEDS ORDERED: ACET/COD 300 MG/30 MG STARTER PACK 6 TAB BTL PO STA (21:38)
[2023-02-13] MEDS ORDERED: traMADol 50 MG STARTER PACK 3 TAB BTL PO STA (21:38)
[2023-02-13 23:52] LABS: Appearance,Urine Cloudy (Clear); Bacteria,Urine Rare /hpf; Bilirubin,Urine Negative (Negative); Blood,Urine Moderate (Negative); Color,Urine Light Yellow; Glucose,Urine (UA) Negative (Negative); Hyaline Casts,Urine 3 /lpf (0-2); Ketones,Urine Negative (Negative); Leukocyte Esterase,Urine Negative (Negative); Mucus,Urine Many /hpf; Nitrite,Urine Negative (Negative); Protein,Urine Trace (Negative); RBC,Urine 57 /hpf (0-5); Specific Gravity,Urine 1.013 (1.001-1.035); Squamous Epithelial Cell,Urine 1 /hpf (0-4); Uric Acid Crystals,Urine Occasional /hpf; Urobilinogen,Urine <2.0 mg/dL (<2.0); WBC,Urine 7 /hpf (0-5)
[2023-02-14] MEDS ORDERED: HYDROmorphone 1 MG/ML 1 ML SYRINGE IVP STA (00:16)
[2023-02-14 01:10] VITALS: BP 124/79; PULSE 73; RESP 16; TEMP 98.1
== END 2023-02-14 01:01 | disposition home or self-care (01) ==
LOC: EC 17:28
DX: N13.2 Hydronephrosis with renal and ureteral calculous obstruction (principal); K21.9 Gastro-esophageal reflux disease without esophagitis; F17.200 Nicotine dependence, unspecified, uncomplicated; Z79.899 Other long term (current) drug therapy; Z88.0 Allergy status to penicillin
CPT/HCPCS: 36415; 80053; 82150; 83605; 83690; 85025; 81001; 74176; 99285; 96374; 96375 ×4; 96376 ×2; 96361; J1200; J0780; J2405; J1170 ×2; J1885; S0119

== ENCOUNTER 2023-02-19 11:37 | Day surgery (SDC) | payer OTHER ==
--- NOTE | 2023-02-15 12:36 | P.HPIHPCON ---
History of Present Illness H&P Date: 02/15/23 Chief Complaint: Right-sided ureteral stone This is a 57-year-old female history of a 6 mm right-sided ureteral stone, she is symptomatic from her stone. Option of right-sided ureteroscopy with holmium laser was discussed. Aware of the risk which includes but not limited to bleeding, infection, injury to ureter. Risk of anesthesia and also discussed. She understood all the risk and agree to proceed Consent for Procedure: I have explained the operation/procedure to the patient, including the risks, benefits, side effects, alternative therapies (including not receiving the proposed treatment or service), the likelihood of the patient achieving his/her goals, and potential recuperation problems for the procedure/sedation/analgesia, as well as any blood products, if indicated. I also explained to the patient the risks, benefits and side effects of the alternatives, as well as the risks related to not receiving the proposed procedure, care, treatment, or services. Past Medical History Past Medical History: GERD/Reflux, Osteoarthritis (OA) Additional Past Medical History / Comment(s): bleeding ulcer Mar 2020,"clicking and popping in neck area very painful,rt shoulder very painfu,and lower back radiating to rt hip painl". SINUS ALLERGIES. History of Any Multi-Drug Resistant Organisms: None Reported Past Surgical History: Orthopedic Surgery Additional Past Surgical History / Comment(s): lt elbow,,rt hand surgery Past Anesthesia/Blood Transfusion Reactions: Motion Sickness, Postoperative Nausea & Vomiting (PONV) Past Psychological History: No Psychological Hx Reported Smoking Status: Current some day smoker Past Alcohol Use History: Occasional Additional Past Alcohol Use History / Comment(s): started smoking at age 15- 16,<1ppd Past Drug Use History: None Reported - Past Family History Father Family Medical History: Cancer Additional Family Medical History / Comment(s): lung CA Mother Family Medical History: Osteoarthritis (OA) Additional Family Medical History / Comment(s): bone degenerating disease- multiple jt replacements Medications and Allergies Home Medications Medication Instructions Recorded Confirmed Type Cetirizine HCl [Zyrtec] 10 mg PO DAILY PRN 12/13/20 02/15/23 History Omeprazole [PriLOSEC] 20 mg PO BID 12/13/20 02/15/23 History Amoxicillin 500 mg PO DAILY 02/15/23 02/15/23 History Ketorolac [Toradol] 10 mg PO Q6HR PRN 02/15/23 02/15/23 History Ondansetron [Zofran] 4 mg PO Q8HR PRN 02/15/23 02/15/23 History oxyCODONE HCL [OxyIR] 5 mg PO Q6H PRN 02/15/23 02/15/23 History Allergies Allergy/AdvReac Type Severity Reaction Status Date / Time Penicillins Allergy Nausea & Verified 02/15/23 09:06 Vomiting & Diarrhea,"passed out" Surgical - Exam - General no distress, moderate pain - Eyes normal ocular movement, no pale - ENT normal nares, normal mucosa - Respiratory normal expansion, normal respiratory effort - Abdomen Abdomen: soft, non tender Assessment and Plan Assessment: OR for right-sided ureteroscopy, holmium laser lithotripsy, stone basketing and stent insertion
[~2023-02-19 11:37] MED LIST: CIPROFLOXACIN/DEXTROSE PMX 400 MG in DEXTROSE/WATER 1 200ML.BAG IVPB PRN
--- NOTE | 2023-02-19 12:28 | XR ---
EXAMINATION TYPE: XR KUB DATE OF EXAM: 02/19/2023 Comparison: CT 02/13/2023 Clinical History: 57-year-old female PRE-OP: LOCATION OF RIGHT RENAL CALCULI Findings: Moderate stool right side of the abdomen. Vascular calcifications redemonstrated in the pelvis along with pelvic phleboliths. The previous right ureteral stone is not clearly depicted radiographically. Impression: Unable to clearly identify the patient's right ureteral stone radiographically.
[2023-02-19] MEDS ORDERED: LACTATED RINGERS 1,000 ML IV ONE (13:10)
[2023-02-19] MEDS ORDERED: ONDANSETRON 4 MG/2 ML VIAL ONE (13:14)
[2023-02-19] MEDS ORDERED: DEXAMETHASONE SOD PHOSPHATE 4 MG/ML 1 ML VIAL IVP ONE (13:15)
[2023-02-19 13:27] VITALS: TEMP 97.7
[2023-02-19] MEDS ORDERED: fentaNYL (PF) 50 MCG/ML 2 ML AMP ONE (13:35)
[2023-02-19] MEDS ORDERED: diphenhydrAMINE 50 MG/ML 1 ML VIAL ONE (13:35)
[2023-02-19] MEDS ORDERED: KETOROLAC 15 MG/ML 1 ML VIAL ONE (13:35)
[2023-02-19] MEDS ORDERED: MIDAZOLAM 2 MG/2 ML VIAL ONE (13:35)
[2023-02-19] MEDS ORDERED: PROPOFOL 10 MG/ML 20 ML VIAL IV ONE (13:35)
[2023-02-19] MEDS ORDERED: SUCCINYLCHOLINE CHLORIDE 200 MG/10 ML VIAL IV ONE (13:35)
[2023-02-19] MEDS ORDERED: ROCURONIUM 10 MG/ML (5 ML VIAL) IV ONE (13:35)
[2023-02-19] MEDS ORDERED: GLYCOPYRROLATE 0.2 MG/ML 2 ML VIAL ONE (13:35)
[2023-02-19] MEDS ORDERED: NEOSTIGMINE 1 MG/ML 10 ML VIAL ONE (13:35)
[2023-02-19] MEDS ORDERED: LIDOCAINE 1% INJ 10MG/ML (20 ML MDV) ONE (13:35)
--- NOTE | 2023-02-19 14:41 | P.OP ---
Date of Procedure: 02/19/23 Preoperative Diagnosis: Right ureteral stone Postoperative Diagnosis: Same Procedure(s) Performed: Cystoscopy, right ureteroscopy, holmium laser lithotripsy, stone basketing and stent insertion Implants: 6-Malay by 24 cm stent in the right ureter left on a string Anesthesia: ABHINAV Surgeon: Mahendra Mckinley Estimated Blood Loss (ml): 1 Pathology: other (Right ureteral stone) Condition: stable Disposition: PACU Indications for Procedure: This is a 57-year-old female history of a 6 mm right-sided ureteral stone, she is symptomatic from her stone. Option of right-sided ureteroscopy with holmium laser was discussed. Aware of the risk which includes but not limited to bleeding, infection, injury to ureter. Risk of anesthesia and also discussed. She understood all the risk and agree to proceed Operative Findings: Right-sided midureteral stone Description of Procedure: Patient brought to the operating room, general anesthesia was induced. She was prepped and draped in sterile fashion and placed dorsal lithotomy position. Cystoscopy fitted with a 21-Malay sheath was inserted per urethra, cystoscopy was performed which showed no abnormality within the bladder. Attention was then carried to the right ureteral orifice, semirigid ureteroscope was inserted per urethra and advanced up the right ureteral orifice, at this point stone was encountered in the mid ureter. Using the holmium laser the stone was fragmented, stone fragments were removed using the stone basket. At this time the ureteroscope was advanced into the proximal ureter which showed no additional stones or sizable fragments, pullback ureteroscopy was performed which showed no injury to the ureter or any sizable fragments, as the ureteroscope was withdrawn a sensor wire was advanced through. Next an 1113 Malay access sheath was passed over the wire into the proximal ureter. Next a flexible ureteroscope was inserted through the access sheath, renoscopy was performed which showed no stones within the kidney, pullback ureteroscopy was performed which showed no injury to the ureter or any ureteral stones. As ureteroscope was withdrawn and a sensor wire was advanced through. Next a ureteral stent was passed over the wire, the proximal curl was visualized on fluoroscopy and distal curl was visualized using cystoscope. The bladder was emptied at the end of the case. Patient tolerated procedure well sixth recovery in stable condition
--- NOTE | 2023-02-19 14:47 | FL ---
EXAMINATION TYPE: FL guidance operating room Intraoperative/procedural fluoroscopic services were pro vided. Total fluoroscopy time is 8.8 seconds with a total of 2 submitted images to PACS. Please see t he operative/procedural note for further details. DAP: [id number] mGym2
[2023-02-19] MEDS ORDERED: hydrALAZINE HCL 20 MG/ML 1 ML VIAL IVP ONE (15:15)
[2023-02-19 16:11] VITALS: RESP 18
[2023-02-19 16:33] VITALS: BP 149/88; PULSE 72
== END 2023-02-19 16:32 | disposition home or self-care (01) ==
LOC: OR 11:37
PROVIDERS: ATTEND Urology
DX: N20.2 Calculus of kidney with calculus of ureter (principal); Z87.442 Personal history of urinary calculi
CPT/HCPCS: 52356; 82365; 74018; C2625; C1894; C1758; C1769 ×3; J2250; J0330; J0360; J1200; J1100; J2710; J2405; J2001; J3010; J0744; J1885; J2704

== ENCOUNTER → 2023-04-18 | Outpatient (CLI) | payer OTHER ==
--- NOTE | 2023-04-18 14:14 | US ---
EXAMINATION TYPE: US carotid duplex BILAT DATE OF EXAM: 04/18/2023 COMPARISON: NONE CLINICAL INDICATION: Female, 57 years old with history of R09.89 CAROTID BRUIT; Bruit TECHNIQUE: Carotid duplex ultrasound examination. Indirect Doppler criteria was utilized. FINDINGS: EXAM MEASUREMENTS: RIGHT: Peak Systolic Velocity (PSV) cm/sec ----- Right CCA: 93.0 ----- Right ICA: 96.3 ----- Right ECA: 84.2 ICA/CCA ratio: 1.0 RIGHT: End Diastole cm/sec ----- Right CCA: 27.0 ----- Right ICA: 33.6 ----- Right ECA: 19.3 LEFT: Peak Systolic Velocity (PSV) cm/sec ----- Left CCA: 84.2 ----- Left ICA: 95.2 ----- Left ECA: 91.9 ICA/CCA ratio: 1.1 LEFT: End Diastole cm/sec ----- Left CCA: 33.6 ----- Left ICA: 49.0 ----- Left ECA: 17.1 VERTEBRALS (direction of flow): Right Vertebral: Antegrade Left Vertebral: Antegrade Rhythm: Normal CANDLE WRAPPER NOTES: Mild plaque bilateral bifurcations. No evidence of increased velocities IMPRESSION: Mild plaque with no evidence of hemodynamically significant stenosis. Criteria for Assigning % of Stenosis / Diameter reduction (Estimation based on the indirect measurements of the internal carotid artery velocities (ICA PSV). 1. Normal (no stenosis)=ICA PSV < 125 cm/s: ratio < 2.0: ICA EDV<40 cm/s. 2. Less than 50% stenosis=ICA PSV < 125 cm/s: ratio < 2.0: ICA EDV<40 cm/s. 3. 50 to 69% stenosis=ICA PSV of 125 to 230 cm/s: ration 2.0 ? 4.0: ICA EDV 40-100 cm/s. 4. Greater than 70% stenosis to near occlusion= ICA PSV > 230 cm/s: ratio > 4.0: ICA EDV > 100 cm/s. 5. Near occlusion= ICA PSV velocities may be low or undetectable: variable ratio and ICA EDV. 6. Total occlusion=unable to detect flow.
== END | disposition home or self-care (01) ==
LOC: RADUSWWP 13:29
PROVIDERS: ATTEND Family Medicine
DX: I65.23 Occlusion and stenosis of bilateral carotid arteries (principal); R09.89 Other specified symptoms and signs involving the circulatory and respiratory systems
CPT/HCPCS: 93880

== ENCOUNTER → 2023-05-15 | Outpatient (CLI) | payer OTHER ==
--- NOTE | 2023-05-15 16:27 | CT ---
EXAMINATION TYPE: CT brain wo con CT DLP: 1105.60 mGycm, Automated exposure control for dose reduction was used. DATE OF EXAM: 05/15/2023 4:21 PM COMPARISON: CTA 04/15/2019. CLINICAL INDICATION:Female, 57 years old with history of H91.90 Hearing changes, hearing changes TECHNIQUE: Brain: Axial CT images of the brain were obtained with coronal and sagittal reformats created and rev iewed. Contrast used: None. Oral contrast used: None. FINDINGS: Brain: Extra-axial spaces: No abnormal extra-axial fluid collections. Ventricular system: Within normal limits Cerebral parenchyma: No acute intraparenchymal hemorrhage or mass effect. The turpin-white junction is well differentiated. Scattered hypoattenuating areas are seen within the white matter. Cerebellum: Unremarkable. Mass effect: No evidence of midline shift. Intracranial vasculature: Atherosclerotic calcifications of the intracranial vessels. Soft tissues: Normal. Calvarium/osseous structures: No depressed skull fracture. Paranasal sinuses and mastoid air cells: Mild scattered paranasal sinus disease. Visualized orbits: Orbital contents are intact. IMPRESSION: No acute intracranial process or significant cerebellopontine angle abnormality.
== END | disposition home or self-care (01) ==
LOC: RADCTMAIN 16:02
PROVIDERS: ATTEND Family Medicine
DX: H91.90 Unspecified hearing loss, unspecified ear (principal); H93.19 Tinnitus, unspecified ear
CPT/HCPCS: 70450

== ENCOUNTER → 2024-05-08 | Outpatient (CLI) | payer OTHER ==
--- NOTE | 2024-05-08 18:08 | CT ---
EXAMINATION TYPE: CT brain wo con CT DLP: 1098.8 mGycm, Automated exposure control for dose reduction was used. DATE OF EXAM: 05/08/2024 5:58 PM COMPARISON: CT brain 05/15/2023, 03/10/2018. CLINICAL INDICATION:Female, 58 years old with history of S09.90XA UNSPECIFIED INJURY OF HEAD R42 W19. XXXA, Head injury to back of head from fall back in February 17, c/o random dizziness spells and stil l some tenderness on back of head. TECHNIQUE: Brain: Multiple axial CT images of the brain were obtained without IV contrast. . Coronal and sagitta l reformats reviewed. FINDINGS: Brain: Extra-axial spaces: No abnormal extra-axial fluid collections. Ventricular system: Within normal limits Cerebral parenchyma: No acute intraparenchymal hemorrhage or mass effect. The turpin-white junction is well differentiated. Scattered hypoattenuating areas are seen within the periventricular white matte r. Cerebellum: Unremarkable. Mass effect: No evidence of midline shift. Intracranial vasculature: Atherosclerotic calcifications of the intracranial vessels. Soft tissues: Normal. Calvarium/osseous structures: No depressed skull fracture. Paranasal sinuses and mastoid air cells: There are cells are clear. Minimal mucosal thickening of the left maxilla sinus. Visualized orbits: Orbital contents are intact. IMPRESSION: 1. No acute intracranial process. 2. Nonspecific minimal white matter changes, likely secondary to chronic small vessel ischemic diseas [facility] [place], , 05/08/2024 6:06 PM
== END | disposition home or self-care (01) ==
LOC: RADCTMAIN 17:29
PROVIDERS: ATTEND Family Medicine
DX: S09.90XA Unspecified injury of head, initial encounter (principal); R90.82 White matter disease, unspecified; W19.XXXA Unspecified fall, initial encounter
CPT/HCPCS: 70450